=== PATIENT | male | born 1965 | race Caucasian/White ===

== ENCOUNTER 2022-12-30 10:12 | Outpatient (REF) | payer OTHER, SELFPAY ==
[2022-12-30 13:37] LABS: MANUAL DIFF FLAG NO
[2022-12-30 14:22] LABS: Basophils Percent Auto 0.5 % (0-2); Eosinophils Absolute Auto 0.2 X10*3/uL (0.0-0.4); Eosinophils Percent Auto 2.7 % (0-4); Hemoglobin 13.3 g/dl (14.0-18.0); Imm Gran Abs Auto 0.01 X10*3/uL (0.00-0.03); Imm Gran Pct Auto 0.2 % (0.0-0.4); Lymphocytes Absolute Auto 2.6 X10*3/uL (1.2-4.9); Lymphocytes Percent Auto 43.6 % (20-40); Mean Corpuscular HGB Conc 33.3 g/dl (31.0-36.0); Mean Corpuscular Hemoglobin 29.3 pg (27.0-33.0); Mean Corpuscular Volume 88.1 fL (80.0-98.0); Mean Platelet Volume 10.6 fL (9.4-12.4); Monocytes Absolute Auto 0.7 X10*3/uL (0.1-1.2); Monocytes Percent Auto 11.2 % (2-11); Neutrophils Absolute Auto 2.5 x10*3/uL (2.0-8.3); Neutrophils Percent Auto 41.8 % (45-73); Platelet Count 310 X10*3/uL (160-400); Red Blood Count 4.54 X10*6/uL (4.60-5.80); Red Cell Distribution Width 13.2 % (11.0-16.0)
[2022-12-30 14:40] LABS: Alanine Aminotransferase 23 U/L (0-40); Albumin Level 4.3 g/dL (3.5-5.0); Alkaline Phosphatase 78 U/L (39-117); Anion Gap 11 (12-20); Aspartate Amino Transferase 22 U/L (5-37); Bilirubin Total 0.5 mg/dL (0.0-1.0); Blood Urea Nitrogen 22 mg/dL (9-16); Calcium 9.2 mg/dL (8.4-10.2); Carbon Dioxide 28 mmol/L (22-29); Chloride 107 mmol/L (96-108); Cholesterol 262 mg/dL; Estimated Glomerular Filt Rate > 60; Glucose Fasting 96 mg/dL (60-99); HDL Cholesterol 43 mg/dL; LDL Cholesterol Calculated 171 mg/dl; Potassium 4.4 mmol/L (3.3-5.1); Sodium 142 mmol/L (135-145); Total Protein 7.5 g/dL (6.5-8.0); Triglycerides 241 mg/dL
[2022-12-30 14:56] LABS: Prostate Specific Antigen Scr 0.61 ng/mL (<0.05-4.0)
== END 2022-12-30 10:13 | disposition home or self-care (01) ==
LOC: HO.10HDL 10:12
PROVIDERS: Visit Provider Internal Medicine
DX: Z00.00 Encounter for general adult medical examination without abnormal findings (principal); Z12.5 Encounter for screening for malignant neoplasm of prostate; E78.2 Mixed hyperlipidemia; K12.0 Recurrent oral aphthae; K14.0 Glossitis; Z85.71 Personal history of Hodgkin lymphoma
CPT/HCPCS: 36415; 80053; 80061; 84153; 84443; 85025

== ENCOUNTER 2024-01-12 13:11 | Emergency (ER) | payer MEDICAID, SELFPAY ==
--- NOTE | ~2024-01-12 | XR_ITS ---
EXAMINATION: XR CHEST CLINICAL INFORMATION: Cough. Fever. COMPARISON: 09/06/2013. TECHNIQUE: 2 views of the chest were obtained. FINDINGS: No significant abnormality is noted involving the heart, lungs, mediastinum, bony thorax or soft tissues. XR/XR chest 2V IMPRESSION: Unremarkable examination.
[2024-01-12 13:41] VITALS: BP 141/85; PULSE 105; RESP 20; TEMP 39.4; O2SAT 94; BMI 28.0
--- NOTE | 2024-01-12 13:41 | ED.GENADULT ---
HPI - General Adult General Chief complaint: Upper Respiratory Symptoms Stated complaint: headache, body aches, coughing, sore throat Time Seen by Provider: 01/12/24 15:55 Source: patient Mode of arrival: ambulatory Limitations: no limitations History of Present Illness HPI narrative: Patient is a 58 year old assigned male at with a history of lymphoma presenting to the emergency department today with a fever, sore throat, and cough. Patient states that over the last few days he has had a fever, sore throat, and a cough. Patient denies any dizziness, lightheadedness, abdominal pain, nausea, vomiting, chills, blurry vision, double vision, loss of vision, chest pain, difficulty breathing, shortness of breath, back pain, night sweats, pain with urination, increased urinary frequency, increased urinary urgency, blood in his urine or stool, syncope or a near syncopal episode, recent trauma or falls, bowel incontinence, bladder incontinence, bowel retention, bladder retention, or any other complaints at this time. Onset (ago): day(s) Severity: mild Severity scale (1-10): 2 Relieving factors: none Exacerbating factors: none Associated symptoms: cough and fever/chills Treatments prior to arrival: none Related Data Home Medications Medication Instructions Recorded Confirmed loratadine-pseudoephedrine ER 10 500 tab PO USEASDIRECTD 03/10/23 03/10/23 mg-240 mg tablet,extended [id number] (Claritin-D 24 Hour) Previous Rx's Medication Instructions Recorded oseltamivir 75 mg capsule (Tamiflu) 75 mg PO DAILY 5 days #5 caps 01/12/24 Allergies Allergy/AdvReac Type Severity Reaction Status Date / Time No Known Allergies Allergy Verified 01/12/24 13:44 Review of Systems Constitutional: Constitutional: Reports no additional constitutional complaints, Denies chills, Reports fever(s) and Denies night sweats Eyes: Eyes: Reports no additional eye complaints, Denies blurry vision, Denies change in vision, Denies diplopia, Denies eye discharge, Denies loss of vision and Denies eye pain ENT: Denies dizziness and Reports sore throat Cardiovascular: Cardiovascular: Reports no additional cardiovascular complaints, Denies chest pain, Denies lightheadedness, Denies Loss of Consciousness and Denies dyspnea Respiratory: Respiratory: Reports no additional respiratory complaints, Reports cough and Denies dyspnea Gastrointestinal: Gastrointestinal: Reports no additional gastrointestinal complaints, Denies abdominal pain, Denies melena, Denies hematochezia, Denies change in bowel habits and Denies change in stool character Genitourinary: Genitourinary: Reports no additional male genitourinary complaints, Denies hematuria, Denies oliguria, Denies difficulty urinating, Denies dysuria, Denies urinary frequency, Denies urinary hesitancy, Denies urinary incontinence and Denies urinary urgency Musculoskeletal: Musculoskeletal: Reports no additional musculoskeletal complaints, Denies numbness and Denies tingling Neurologic: Denies dizziness, Denies loss of vision, Denies numbness and Denies tingling Psychiatric: Psychiatric: Reports no additional psychiatric complaints Endocrine: Endocrine: Reports no additional endocrine complaints Hematologic/Lymphatic: Hematologic/Lymphatic: Reports no additional hematologic/lymphatic complaints Allergic/Immunologic: Allergic/Immunologic: Reports no additional allergic/immunologic complaints PMFSH Past Medical History Attestation statement: The following information was validated with the patient. Source: old records reviewed and nursing notes reviewed Medical History Hodgkins lymphoma H/O scabies (~2013) Carpal tunnel syndrome, bilateral High cholesterol Dyslipidemia Surgical History History of liver biopsy History of laparotomy History of vasectomy S/P splenectomy S/P radiation therapy Family History Family History Father Hypertension Mother Hypertension Heart attack Social History Social History Patient Tobacco Use Status: Never used Tobacco e-Cigarette/Vaping Use: Never Used Advance Directives: No service: No Current occupational status: employed Physical Exam ED Vital Signs: Vital Signs - 24 hr 01/12/24 13:41 01/12/24 15:58 Temperature 103 F H 99.9 F Pulse Rate 105 H Respiratory Rate 20 Blood Pressure 141/85 H Pulse Oximetry 94 Oxygen Delivery Method Room Air BMI result Body Mass Index 28.0 Const General: cooperative, no acute distress, alert and awake Nutritional Appearance: well nourished Orientation/consciousness: patient oriented x3 Limitations: no limitations HENMT Head: Yes normal to inspection and Yes atraumatic Ears: hearing grossly normal bilaterally and external ears normal General nose exam: Normal external nose present, no nasal discharge noted and no epistaxis Face and sinus: Yes normal facial exam, No abrasion and No laceration Mouth: Normal oral and palatal mucosa present, no drooling and no muffled voice Eyes General: appearance normal, both eyes and all related structures Periorbital: periorbital findings normal Eyelids: Yes eyelids normal Conjunctivae: conjunctivae normal Pupils: Equal, round and reactive pupils present EOM: EOMs intact bilaterally Neck Neck: Yes normal visual inspection, Yes full ROM and Yes no lymphadenopathy Chest Chest palpation & inspection: normal inspection of the chest Resp Effort & Inspection: normal respiratory effort and able to speak in complete sentences Auscultation: clear to auscultation bilaterally GI Inspection: Yes normal to inspection Neuro General: patient oriented x3 and moves all extremities Cranial nerves: Yes Equal, round and reactive pupils present Cognition (Neuro): normal cognition Motor exam (neuro): 5/5 motor strength present throughout Sensory Exam: Normal double simultaneous stimulation for sensation Coordination: [id number] test normal Extrem General: Yes normal to inspection, Yes full ROM and Yes capillary refill normal Psych Appearance: grossly normal Mental Status: mental status grossly normal Affect: normal affect Attitude: cooperative Thought process: Normal thought process present Thought content: Normal thought content present Insight: Good insight present (Psych) Course Course Course Narrative: RME performed by Shi Sharp PA-C. Patient is a 58 year old assigned male at presenting to the emergency department with a cough, headache, and congestion. 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 Labs and swabs ordered. Patient placed back in the waiting room pending room availability and results. Medications Administered Discontinued Medications Generic Name Dose Route Start Last Admin Trade Name Freq PRN Reason Stop Dose Admin Acetaminophen 975 mg 01/12/24 13:42 01/12/24 13:47 Acetaminophen 325 Mg Tablet PO 01/12/24 13:43 975 mg ONCE ONE Administration Medical Decision Making Medical Decision Making MDM Narrative: Patient is a 58 year old assigned male at with a history of hodgkins lymphoma presenting to the emergency department today with a fever, cough, and sore throat. Patient's physical exam was unremarkable. Patient's blood work was unremarkable. Patient's EKG was unremarkable. Patient's chest x-ray showed no acute process. Patient's COVID-19 test was negative. Patient's influenza test was positive. Patient's strep test was negative. I explained my physical exam findings as well as all test results to the patient. I answered all questions asked by the patient. I stressed the importance of the patient taking his medication as prescribed. I stressed the importance of the patient following up with his primary care provider. I stressed the importance of the patient returning to the emergency department immediately if his symptoms were to worsen or if he were to develop any dizziness, shortness of breath, difficulty breathing, chest pain, blurry vision, loss of vision, nausea, vomiting, abdominal pain, fever, chills, back pain, or any other complaints. Patient verbalized agreement and understanding with this treatment plan and discharge. Differential Diagnosis Differential Diagnoses: The differential diagnosis associated with the presentation includes Influenza COVID-19 Strep pharyngitis Admission/Observation Consideration of admission/observation: Escalation of care including admission/observation considered Patient would have been admitted to the hospital had his work up had any findings where hospital admission was appropriate and his clinical presentation warranted hospital admission. Lab Data [facility] Lab Attestation statement: I reviewed the patient's lab results. My interpretation of these results are in the [facility] Rationale portion of this note. 01/12/24 13:53 01/12/24 13:53 Labs: Lab Results 01/12/24 Range/Units 13:53 WBC 5.4 (4.8-10.8) X10*3/uL RBC 4.58 L (4.60-5.80) X10*6/uL Hgb 13.2 L (14.0-18.0) g/dl Hct 39.5 L (42.0-52.0) % MCV 86.2 (80.0-98.0) fL MCH 28.8 (27.0-33.0) pg MCHC 33.4 (31.0-36.0) g/dl RDW 12.8 (11.0-16.0) % Plt Count 320 (160-400) X10*3/uL MPV 9.6 (9.4-12.4) fL Immature Gran % (Auto) 0.2 (0.0-0.4) % Neut % (Auto) 55.1 (45-73) % Lymph % (Auto) 25.2 (20-40) % [place] % (Auto) 16.6 H (2-11) % Eos % (Auto) 2.2 (0-4) % Baso % (Auto) 0.7 (0-2) % Lymph # (Auto) 1.4 (1.2-4.9) X10*3/uL [place] # (Auto) 0.9 (0.1-1.2) X10*3/uL Eos # (Auto) 0.1 (0.0-0.4) X10*3/uL Baso # (Auto) 0.0 (0.0-0.2) X10*3/uL Abs Immat Gran (auto) 0.01 (0.00-0.03) X10*3/uL Absolute Neuts (auto) 2.9 (2.0-8.3) x10*3/uL Absolute Nucleated RBC 0.000 (0.0-0.012) X10*3/uL Nucleated RBC % (auto) 0.0 (0.0-0.2) /100WBC Sodium 137 (135-145) mmol/L Potassium 3.3 (3.3-5.1) mmol/L Chloride 105 (96-108) mmol/L Carbon Dioxide 24 (22-29) mmol/L Anion Gap 11 L (12-20) BUN 15 (9-16) mg/dL Creatinine 1.16 (0.5-1.4) mg/dL Estim Creat Clear Calc 71.6 Estimated GFR > 60 Random Glucose 137 H (60-115) mg/dL Calcium 9.3 (8.4-10.2) mg/dL Magnesium 2.2 (1.6-2.6) mg/dL Total Bilirubin 0.3 (0.0-1.0) mg/dL AST 32 (5-37) U/L ALT 25 (0-40) U/L Alkaline Phosphatase 92 (39-117) U/L Troponin I High Sens < 2.7 (<3.5-35.0) ng/L Total Protein 8.1 H (6.5-8.0) g/dL Albumin 4.3 (3.5-5.0) g/dL COVID-19 (TANO) Negative (Negative) COVID-19 Clin Com See Note Influenza Type A (COLLIN) Positive A (Negative) Influenza Type B (COLLIN) Negative (Negative) Influenza A & B Note See Note Independent Interpretation I performed an independent interpretation of an: EKG and Plain X-Ray Interpretation: My interpretation is in agreement with the radiologist's impression of this imaging study. EXAMINATION: XR CHEST CLINICAL INFORMATION: Cough. Fever. COMPARISON: 09/06/2013. TECHNIQUE: 2 views of the chest were obtained. FINDINGS: No significant abnormality is noted involving the heart, lungs, mediastinum, bony thorax or soft tissues. XR/XR chest 2V IMPRESSION: Unremarkable examination. Dictated By: Rashard Rodriguez Signed By: Electronically signed by Rashard Rodriguez 01/12/24 1502 Vent. Rate: 098 BPM Atrial Rate: 098 BPM P-R Int: 154 ms QRS Dur: 088 ms QT Int: 320 ms P-R-T Axes: 053 064 007 degrees QTc Int: 408 ms Normal sinus rhythm Normal ECG When compared with ECG of 06-SEP-2013 21:16, No significant change was found DD/ 1348 Radiology Impression Discussion of test interpretation with radiology: I have reviewed the radiologist's reading. Prescription Management I considered prescription management with: Antiviral (patient prescribed tamiflu) Discharge Plan Discharge Clinical Impression: Influenza Patient Disposition: Home, Self-Care Instructions: Influenza (DC) Additional Instructions: Follow up with your primary care provider. Return to the emergency department immediately if your symptoms worsen or if you develop any dizziness, shortness of breath, difficulty breathing, chest pain, blurry vision, loss of vision, nausea, vomiting, abdominal pain, fever, chills, back pain, or any other complaints. Prescriptions: New oseltamivir [Tamiflu] 75 mg capsule 75 mg PO DAILY 5 Days Qty: 5 0RF No Action Claritin-D 24 Hour 10-240 mg Tablet Extended Release 24 Hr 500 tab PO USEASDIRECTD Referrals: Genesis Gray MD [Primary Care Provider] - Interventions: ED Discharge Assessment Last Done: 01/12/24 16:29 Discharge Date/Time: 01/12/24 16:29 Print Language: Slovenian
--- NOTE | 2024-01-12 13:45 | ECG_ITS ---
Test Reason : CHEST PAIN Blood Pressure : / mmHG Vent. Rate : 098 BPM Atrial Rate : 098 BPM P-R Int : 154 ms QRS Dur : 088 ms QT Int : 320 ms P-R-T Axes : 053 064 007 degrees QTc Int : 408 ms Normal sinus rhythm Normal ECG When compared with ECG of 06-SEP-2013 21:16, No significant change was found Referred By: Shi Sharp Electronically Signed By:Rodrigo Dennis
[2024-01-12] MEDS: Acetaminophen 325 MG TABLET 975 MG PO (13:47)
[2024-01-12 14:06] LABS: MANUAL DIFF FLAG NO
[2024-01-12 14:09] LABS: Basophils Percent Auto 0.7 % (0-2); Eosinophils Absolute Auto 0.1 X10*3/uL (0.0-0.4); Eosinophils Percent Auto 2.2 % (0-4); Hematocrit 39.5 % (42.0-52.0); Hemoglobin 13.2 g/dl (14.0-18.0); Imm Gran Abs Auto 0.01 X10*3/uL (0.00-0.03); Imm Gran Pct Auto 0.2 % (0.0-0.4); Lymphocytes Absolute Auto 1.4 X10*3/uL (1.2-4.9); Lymphocytes Percent Auto 25.2 % (20-40); Mean Corpuscular HGB Conc 33.4 g/dl (31.0-36.0); Mean Corpuscular Hemoglobin 28.8 pg (27.0-33.0); Mean Corpuscular Volume 86.2 fL (80.0-98.0); Mean Platelet Volume 9.6 fL (9.4-12.4); Monocytes Absolute Auto 0.9 X10*3/uL (0.1-1.2); Monocytes Percent Auto 16.6 % (2-11); Neutrophils Absolute Auto 2.9 x10*3/uL (2.0-8.3); Neutrophils Percent Auto 55.1 % (45-73); Platelet Count 320 X10*3/uL (160-400); Red Blood Count 4.58 X10*6/uL (4.60-5.80); Red Cell Distribution Width 12.8 % (11.0-16.0); White Blood Count 5.4 X10*3/uL (4.8-10.8)
[2024-01-12 14:27] LABS: COVID-19 Test Negative (Negative); IDNOW Serial# 08D9AD1C
[2024-01-12 14:28] LABS: IDNOW Serial# 152EDE1D; Influenza A Positive (Negative); Influenza B2 Negative (Negative)
[2024-01-12 15:58] VITALS: TEMP 37.7
[2024-01-12 16:48] LABS: Alanine Aminotransferase 25 U/L (0-40); Albumin Level 4.3 g/dL (3.5-5.0); Alkaline Phosphatase 92 U/L (39-117); Anion Gap 11 (12-20); Aspartate Amino Transferase 32 U/L (5-37); Bilirubin Total 0.3 mg/dL (0.0-1.0); Blood Urea Nitrogen 15 mg/dL (9-16); Calcium 9.3 mg/dL (8.4-10.2); Carbon Dioxide 24 mmol/L (22-29); Chloride 105 mmol/L (96-108); Creatinine Clr Calc Pharmacy 71.6; Estimated Glomerular Filt Rate > 60; Glucose Random 137 mg/dL (60-115); Magnesium 2.2 mg/dL (1.6-2.6); Potassium 3.3 mmol/L (3.3-5.1); Sodium 137 mmol/L (135-145); Total Protein 8.1 g/dL (6.5-8.0)
[2024-01-12 17:04] LABS: Troponin-I High Sensitivity < 2.7 ng/L (<3.5-35.0)
== END 2024-01-12 16:29 | disposition home or self-care (01) ==
PROVIDERS: Physician Assistant Medical; Emergency Provider Emergency Medicine Emergency Medical Services; PCP Internal Medicine
DX: J10.1 Influenza due to other identified influenza virus with other respiratory manifestations (principal); R51.9 Headache, unspecified; M79.10 Myalgia, unspecified site; R05.9 Cough, unspecified; R50.9 Fever, unspecified; Z11.52 Encounter for screening for COVID-19; Z79.899 Other long term (current) drug therapy
CPT/HCPCS: 36415; 71046; 80053; 83735; 84484; 85025; 87502; 87635; 93005; 99283

== ENCOUNTER → 2024-01-12 13:45 | Outpatient (BNV) | payer MEDICAID, SELFPAY | PROVIDERS: Emergency Provider Emergency Medicine Emergency Medical Services; PCP Internal Medicine; Visit Provider Internal Medicine Cardiovascular Disease | DX: R07.9 Chest pain, unspecified (principal) | CPT/HCPCS: 93010 ==

== ENCOUNTER 2024-02-18 10:20 | Outpatient (AMB) | payer MEDICAID, SELFPAY ==
--- NOTE | 2024-02-18 10:26 | MHC.OFFVIS ---
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 He is a 58-year-old male with prior history of hyperlipidemia only recently started being treated for the same, family history of premature coronary artery disease in his grandfather, personal history of mantle radiation for Hodgkin's lymphoma in 1990. He has had remission with lymphoma since then. Said about 3 years ago after he got COVID annual was playing softball and running he got episode chest tightness associated with shortness of breath. He then stopped and rested and the symptoms subsided. He then after subsequent episodes of COVID he has had worsening symptoms of exertional chest pain with lesser intensity. Now said when he goes out and does some walking he gets chest tightness was with shortness of breath. Was given sublingual nitroglycerin but he said this has not helped but his daughters inhalers helps him slightly. He said he continues to walk sometimes and he continues to have the chest pressure and then when he rests the symptoms then subside within 5-10 minutes. He has not had any other prolonged symptoms at rest. Symptoms have always been exertional in nature. He denies any heart failure symptoms. Denies any lightheadedness, syncope. [facility] Medical History Hodgkins lymphoma H/O scabies (~2013) Carpal tunnel syndrome, bilateral High cholesterol Dyslipidemia Surgical History History of liver biopsy History of laparotomy History of vasectomy S/P splenectomy S/P radiation therapy Family History Father Hypertension Mother Hypertension Heart attack Social History Patient Tobacco Use Status: Never used Tobacco e-Cigarette/Vaping Use: Never Used service: No Current occupational status: employed Review of Systems Const Denies chills, Denies daytime sleepiness, Denies fatigue, Denies fever(s), Denies frequent falls, Denies poor appetite, Denies snoring, Denies stops breathing during sleep, Denies weakness, Denies weight gain and Denies weight loss Eyes Denies loss of vision ENT Denies dizziness and Denies hearing loss Card Denies chest pain, Denies claudication, Denies leg edema, Denies lightheadedness, Denies palpitations, Denies dyspnea, Denies dyspnea on exertion and Denies orthopnea Resp Denies cough, Denies excessive phlegm production, Denies dyspnea, Denies dyspnea on exertion, Denies snoring and Denies wheezing GI Denies abdominal pain, Denies hematochezia, Denies change in bowel habits, Denies nausea and Denies vomiting Denies dysuria and Denies urinary frequency Musc Denies arthralgias, Denies muscle weakness, Denies numbness and Denies other (frequent falls) Skin/Breast Denies nail changes and Denies rash Neuro Denies Abnormal speech present, Denies dizziness, Denies frequent falls, Denies loss of vision, Denies memory loss, Denies numbness and Denies weakness Psych Denies depression and Denies memory loss Endo Denies fatigue and Denies palpitations Arnie/Lymph Reports easy bruising and Reports other (anemia) Aller/Immun Denies wheezing Physical Exam Vital Signs: Last Vital Signs Pulse 70 02/18/24 10:27 BP 110/70 02/18/24 10:27 BMI result Body Mass Index 27.6 Const General: cooperative, comfortable, no acute distress, well developed, alert, awake and Physically active Nutritional Appearance: average body habitus and well nourished Orientation/consciousness: patient oriented x3 Limitations: no limitations HEENT Head: Yes normocephalic and Yes atraumatic Neck Neck: Yes trachea midline, Yes supple and Yes no JVD Resp Effort & Inspection: normal respiratory effort Auscultation: clear to auscultation bilaterally Cardio Jugular venous distension: no JVD Palpation: normal PMI Rate: regular rate Rhythm: regular rhythm Heart sounds: S1 normal heart sound present, S2 normal heart sound present, no click, no gallops and no murmurs GI Auscultation: normal bowel sounds Skin General skin exam: no rashes or lesions noted Neuro General: patient oriented x3 and no focal motor deficits Speech: No Abnormal speech present Extrem General: Yes no clubbing, cyanosis or edema Psych Appearance: grossly normal Office Procedures EKG Details: EKG shows normal sinus rhythm normal EKG at 70 beats per minute [id number], Complete Assessment & Plan Assessment & Plan (1) Exertional chest pain: Code(s): R07.9 - Chest pain, unspecified Plan: Exertional chest pain in this middle-aged man with risk factors of family history as well as hyperlipidemia as well as history of mantle radiation which is risk factor for development of progressive atherosclerotic disease. We discussed management. Given his baseline EKG being normal I would like to do a treadmill stress test to evaluate for myocardial ischemia. If his high risk treadmill stress test, would require invasive cardiac catheterization. This was discussed with him. I have meanwhile advised him to avoid strenuous exertion. Will start him on low-dose aspirin as well as Toprol-XL 50 mg daily. Continue high-intensity statin therapy. If he gets any symptoms at rest he is advised to seek emergency care right away. Also advised him to have an echocardiogram as radiation involving the heart can cause radiation induced heart disease and will evaluate for the same. Possibility of bronchospastic airway disease related to either radiation and/or COVID could be possibility. However if his cardiac workup is negative can pursue pulmonary workup at that point in time. (2) Dyslipidemia: Code(s): E78.5 - Hyperlipidemia, unspecified Plan: Significant hyperlipidemia with family history as well as mantle radiation. Strongly suggest him to continue high-intensity statin therapy. Target goal LDL less than 70 mg/dL. Continue participate in heart healthy lifestyle. Avoid strenuous exertion at this point time till the workup is completed. Will follow up in the clinic in 4 weeks time, sooner p.r.n.. Thank you for allowing me to partake in his care Orders: Orders CA stress test Today R07.9 - Chest pain, unspecified CA echo transthoracic complete Today R07.9 - Chest pain, unspecified Medications: New aspirin (Ecotrin Low Strength) 81 mg PO DAILY 30 tabs 5RF R07.9 - Chest pain, unspecified metoprolol succinate ER (Toprol XL) 50 mg PO DAILY 30 tabs 3RF R07.9 - Chest pain, unspecified Coding Level of Care Code New Pt Level 4 (15199) Diagnoses Exertional chest pain R07.9 Dyslipidemia E78.5 CPT Codes EKG - CPT: 57902-[id number], Complete ([id number])
[2024-02-18 10:27] VITALS: BP 110/70; PULSE 70; BMI 27.6
== END 2024-02-18 11:00 | disposition home or self-care (01) ==
PROVIDERS: PCP Internal Medicine; Visit Provider Internal Medicine Cardiovascular Disease
DX: R07.9 Chest pain, unspecified (principal); E78.5 Hyperlipidemia, unspecified
CPT/HCPCS: 93010; 99204

== ENCOUNTER → 2024-02-18 10:20 | Outpatient (BNVA) | payer MEDICAID, SELFPAY | PROVIDERS: PCP Internal Medicine; Visit Provider Internal Medicine Cardiovascular Disease | DX: R07.9 Chest pain, unspecified (principal); E78.5 Hyperlipidemia, unspecified | CPT/HCPCS: 93005; 99202 ==

== ENCOUNTER → 2024-02-19 08:41 | Outpatient (REF) | payer MEDICAID, SELFPAY ==
--- NOTE | 2024-02-19 08:45 | CA_ITS ---
Acquisition Time: 2024-02-19 08:59:40 Total Exercise Time: 00:04:06 Test Indications: CP, SOB Medications: SEE H Protocol: JERALD Max HR: 120 BPM 73% of Pred: 163 BPM Max BP: 158/072 mmHG Max Work Load: 5.9 METS Exercise stress test exercise 4 min 6 sec of jerald protocol achieving 73% MPHR, with 7/10 chest tightness at peak (2/10 in strage 1), with mild SOB. with a drop in blood pressure, with EKG changes in leads 2,3, aVF greater than 1mm. CHets pain reslolved with rest. Robb treadmill score -14. Test reviewedf with Dr. Campbell. Referred By: Vladimir Gordon Overread By: Keiry Weaver
[2024-02-19 09:59] LABS: MANUAL DIFF FLAG NO
[2024-02-19 10:48] LABS: Basophils Percent Auto 0.6 % (0-2); Eosinophils Absolute Auto 0.2 X10*3/uL (0.0-0.4); Hematocrit 40.9 % (42.0-52.0); Hemoglobin 13.8 g/dl (14.0-18.0); Imm Gran Abs Auto 0.01 X10*3/uL (0.00-0.03); Imm Gran Pct Auto 0.2 % (0.0-0.4); Lymphocytes Absolute Auto 2.7 X10*3/uL (1.2-4.9); Lymphocytes Percent Auto 40.8 % (20-40); Mean Corpuscular HGB Conc 33.7 g/dl (31.0-36.0); Mean Corpuscular Hemoglobin 29.4 pg (27.0-33.0); Mean Platelet Volume 10.4 fL (9.4-12.4); Monocytes Absolute Auto 0.7 X10*3/uL (0.1-1.2); Monocytes Percent Auto 10.1 % (2-11); Neutrophils Percent Auto 45.3 % (45-73); Platelet Count 314 X10*3/uL (160-400); Red Cell Distribution Width 13.5 % (11.0-16.0); White Blood Count 6.6 X10*3/uL (4.8-10.8)
[2024-02-19 10:58] LABS: INTERNATIONAL NORM RATIO 0.9 (0.9-1.1); Prothrombin Time 10.8 SEC (11.1-13.3)
[2024-02-19 11:10] LABS: Anion Gap 13 (12-20); Blood Urea Nitrogen 18 mg/dL (9-16); Calcium 9.4 mg/dL (8.4-10.2); Carbon Dioxide 26 mmol/L (22-29); Chloride 104 mmol/L (96-108); Estimated Glomerular Filt Rate > 60; Glucose Random 100 mg/dL (60-115); Potassium 4.5 mmol/L (3.3-5.1); Sodium 138 mmol/L (135-145)
== END ==
LOC: HO.CARD 08:41
PROVIDERS: Nurse Practitioner; PCP Internal Medicine; Visit Provider Internal Medicine Cardiovascular Disease
DX: Z01.812 Encounter for preprocedural laboratory examination (principal); R07.9 Chest pain, unspecified; E78.5 Hyperlipidemia, unspecified
CPT/HCPCS: 36415; 80048; 85025; 85610; 93017

== ENCOUNTER → 2024-02-23 09:33 | Outpatient (REF) | payer MEDICAID, SELFPAY ==
--- NOTE | 2024-02-23 09:41 | CA_ITS ---
Transthoracic Echocardiogram Patient (Last, First, Middle): Callum Henriquez, Gender: Male Date of : 1965 Age: 58 Procedure Date: 02/23/2024 Procedure Type: Transthoracic Echocardiogram Location: OP Height: 170.18 cm Weight: 79.38 kg BSA: 1.91 m2 Heart Rate: 67 bpm BP: 140 / 75 mmHg Banking Assistant: REESE Referring MD: Vladimir Gordon MD Symptoms: R07.9 - Chest pain, unspecified Study Quality: Adequate ECG Rhythm: Sinus Conclusions: - The left ventricular systolic function is normal. The calculated ejection fraction is 62% by biplane method. - The basal inferior and basal inferolateral segments are hypokinetic. - No obvious valvular pathology seen on this study. Findings Left Ventricle Normal left ventricular cavity size. There is normal left ventricular wall thickness. The left ventricular systolic function is normal. The calculated ejection fraction is 62% by biplane method. There is no evidence of regional wall motion abnormalities. Diastolic function is normal for age. LV peak GLS -22.5%. Wall Motion Rest Echo Findings The basal inferior and basal inferolateral segments are hypokinetic. Right Ventricle Mildly increased right ventricular cavity size. There is normal right ventricular systolic function. Atria Both atria are normal in size. Aortic Valve There is a normal trileaflet aortic valve. There is no aortic valve stenosis. There is no aortic valve regurgitation. Mitral Valve The mitral valve appears normal. There is trace mitral valve regurgitation. There is no mitral valve stenosis. Pulmonic Valve The pulmonic valve is likely normal. Tricuspid Valve There is trace tricuspid valve regurgitation. There is no evidence of pulmonary hypertension. Great Vessels The asc aorta is normal in size. Venous The inferior vena cava is normal in size and collapses greater than 50% with inspiration. Pericardium/Pleural There is no evidence of pericardial effusion. Prior Study Comparison No prior study available for comparison. Recommendations, Care & Conclusions No obvious valvular pathology seen on this study. Measurements 2D Linear Measurements IVSd: 0.76 0.6-0.9/0.6-1.0 cm LVIDd: 4.70 3.9-5.3/4.2-5.9 cm LVIDd Index: 2.46 2.4-3.2/2.2-3.1 cm/m2 LVIDs: 2.53 2.0-3.6 cm LVPWd: 0.85 0.7-1.1 cm LA Diam: 3.40 2.7-3.8/3.0-4.0 cm LAIDs Index: 1.78 1.5-2.3 cm/m2 LV Mass: 154.31 67-162/88-224 g LV Mass Index: 80.79 43-95/49-115 g/m2 LVOT Diam: 2.20 3.0+(-)1.3 cm 2D Systolic Function EF 4C: 58.80 >55% EF 2C: 62.30 >55% EF BiP: 62.30 >55% Mitral Valve MV Pk E: 0.91 MV PK A: 0.97 MV Decel Time: 203.00 E/A: 0.90 E'Lateral: 8.59 E'Medial: 7.83 E/E' Med: 11.60 E/E' Lat: 10.60 PHT: 60.00 MVA PHT: 3.67 [place]: 4.48 Aortic Valve AoV Pk Raciel: 1.50 AoV Mn Raciel: 1.01 AoV VTI: 0.32 AoV Pk Grad: 9.00 Aov Mn Grad: 5.00 XUAN Cont.VTI: 2.72 LVOT LVOT Pk Raciel: 1.07 LVOT Mn Raciel: 0.72 LVOT VTI: 0.23 LVOT Pk Grad: 5.00 LVOT Mn Grad: 2.00 LVOT Diam: 2.20 LVOT Area: 3.80 Diastolic Function MV Pk E: 0.91 MV Pk A: 0.97 E/A: 0.90 E'Medial: 7.83 E/E' Med: 11.60 E' Laterial: 8.59 E/E' Lat: 10.60 Right Ventricle TAPSE (mm): 27.40 TVS' Raciel: 16.30 Tricuspid Valve TR Pk Raciel: 1.99 TR Pk Grad: 16.00 RA Press: 3.00 RVSP: 19.00 Great Vessels Aorta Sinus of Valsalva: 3.70 2.0-3.5 cm Ao Asc: 3.20 2.1-3.4 cm Pulmonary Valve PV Pk Raciel: 1.27 Peak PV Grad: 6.00 Updated in Other Vendor System with Status of Final Tim Campbell MD electronically signed on 02/23/2024 4:59:51 PM with status of Final
[2024-02-23 09:56] LABS: MANUAL DIFF FLAG NO
[2024-02-23 10:14] LABS: Basophils Percent Auto 0.6 % (0-2); Eosinophils Absolute Auto 0.2 X10*3/uL (0.0-0.4); Eosinophils Percent Auto 2.9 % (0-4); Hematocrit 40.1 % (42.0-52.0); Hemoglobin 13.2 g/dl (14.0-18.0); Imm Gran Abs Auto 0.01 X10*3/uL (0.00-0.03); Imm Gran Pct Auto 0.1 % (0.0-0.4); Lymphocytes Percent Auto 41.9 % (20-40); Mean Corpuscular HGB Conc 32.9 g/dl (31.0-36.0); Mean Corpuscular Hemoglobin 28.9 pg (27.0-33.0); Mean Corpuscular Volume 87.7 fL (80.0-98.0); Mean Platelet Volume 10.1 fL (9.4-12.4); Monocytes Absolute Auto 0.8 X10*3/uL (0.1-1.2); Monocytes Percent Auto 11.4 % (2-11); Neutrophils Absolute Auto 3.1 x10*3/uL (2.0-8.3); Neutrophils Percent Auto 43.1 % (45-73); Platelet Count 300 X10*3/uL (160-400); Red Blood Count 4.57 X10*6/uL (4.60-5.80); Red Cell Distribution Width 13.8 % (11.0-16.0); White Blood Count 7.3 X10*3/uL (4.8-10.8)
[2024-02-23 11:13] LABS: Prostate Specific Antigen Scr 0.41 ng/mL (<0.05-4.0)
[2024-02-23 11:14] LABS: Alanine Aminotransferase 33 U/L (0-40); Albumin Level 4.3 g/dL (3.5-5.0); Alkaline Phosphatase 93 U/L (39-117); Anion Gap 9 (12-20); Aspartate Amino Transferase 30 U/L (5-37); Blood Urea Nitrogen 15 mg/dL (9-16); Calcium 9.9 mg/dL (8.4-10.2); Carbon Dioxide 28 mmol/L (22-29); Chloride 106 mmol/L (96-108); Cholesterol 161 mg/dL (<200); Estimated Glomerular Filt Rate > 60; Glucose Random 111 mg/dL (60-115); HDL Cholesterol 47 mg/dL (>40); LDL Cholesterol Calculated 47 mg/dL (<100); Potassium 4.7 mmol/L (3.3-5.1); Sodium 138 mmol/L (135-145); Total Protein 7.8 g/dL (6.5-8.0); Triglycerides 335 mg/dL (<150)
[2024-02-23 11:51] LABS: Bilirubin Total 0.5 mg/dL (0.0-1.0)
== END ==
LOC: HO.CARD 09:33
PROVIDERS: PCP Internal Medicine; Visit Provider Internal Medicine Cardiovascular Disease
DX: R07.9 Chest pain, unspecified (principal); E78.2 Mixed hyperlipidemia; I20.9 Angina pectoris, unspecified; M75.42 Impingement syndrome of left shoulder; N40.0 Benign prostatic hyperplasia without lower urinary tract symptoms; R73.01 Impaired fasting glucose; Z85.71 Personal history of Hodgkin lymphoma
CPT/HCPCS: 36415; 80053; 80061; 84153; 85025; 93306; 93356

== ENCOUNTER → 2024-02-23 09:41 | Outpatient (BNV) | payer MEDICAID, SELFPAY | PROVIDERS: PCP Internal Medicine; Visit Provider Internal Medicine | DX: R07.9 Chest pain, unspecified (principal) | CPT/HCPCS: 93306; 93356 ==

== ENCOUNTER → 2024-02-24 23:59 | Outpatient (BNV) | payer MEDICAID, SELFPAY | PROVIDERS: PCP Internal Medicine; Visit Provider Internal Medicine Cardiovascular Disease | DX: I20.89 Other forms of angina pectoris (principal) | CPT/HCPCS: 93458; 99152 ==

== ENCOUNTER 2024-03-08 09:36 | Outpatient (AMB) | payer MEDICAID, SELFPAY ==
[2024-03-08 09:54] VITALS: BP 130/62; PULSE 64; BMI 28.4
--- NOTE | 2024-03-08 09:54 | MHC.OFFVIS ---
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 He has been following with Dr Gordon and had stable angina and underwent exercise stress test which was significantly abnormal which led to cardiac catheterization. Cardiac catheterization has shown occluded mid RCA with [id number] collaterals. He also has distal left main 80% stenosis involving the bifurcation with ostial circumflex as well as LAD disease. He also has 70% proximal circumflex stenosis. There is moderate calcification present. He was referred for cardiac surgery for bypass but due to mental radiation it was felt that his surgical risk is significantly high and he has been referred back for PCI. He has been experiencing anginal symptoms with activity. He said he was raking leaves today and had chest discomfort which went away with rest. He has been experiencing mostly exertional symptoms and overall has stable angina. We discussed in detail about his coronary anatomy and I have shown him some pictures of his coronary arteries for him to understand what we are dealing with. I have also explained to him the rationale behind being not a good surgical candidate. He understands that. [facility] Medical History Hodgkins lymphoma H/O scabies (~2013) Carpal tunnel syndrome, bilateral High cholesterol Dyslipidemia Surgical History History of liver biopsy History of laparotomy History of vasectomy S/P splenectomy S/P radiation therapy Family History Father Hypertension Mother Hypertension Heart attack Social History Patient Tobacco Use Status: Never used Tobacco e-Cigarette/Vaping Use: Never Used service: No Current occupational status: employed Review of Systems Const Denies chills, Denies fatigue, Denies fever(s), Denies frequent falls, Denies weakness, Denies weight gain and Denies weight loss ENT Denies dizziness Card Denies chest pain, Denies leg edema, Denies lightheadedness, Denies palpitations, Denies dyspnea and Denies dyspnea on exertion Resp Denies cough, Denies dyspnea and Denies dyspnea on exertion GI Denies hematochezia Musc Denies abnormal gait, Denies muscle weakness, Denies numbness, Denies radiating pain into limb and Denies tingling Neuro Denies abnormal gait, Denies dizziness, Denies frequent falls, Denies numbness, Denies tingling and Denies weakness Endo Denies fatigue and Denies palpitations Physical Exam Vital Signs: Last Vital Signs Pulse 64 03/08/24 09:54 BP 130/62 03/08/24 09:54 BMI result Body Mass Index 28.4 GENERAL APPEARANCE: in no acute distress, pleasant. NECK: no carotid bruit, no jugular venous distention. SKIN: no suspicious lesions, warm and dry. HEART: no murmurs, regular rate and rhythm. LUNGS: clear to auscultation bilaterally. ABDOMEN: soft, nontender. EXTREMITIES: no edema. PERIPHERAL PULSES: equal. NEUROLOGIC: No gross deficits, AAO X 3 Assessment & Plan Assessment & Plan (1) Coronary artery disease: Code(s): I25.10 - Atherosclerotic heart disease of [place] coronary artery without angina pectoris (2) Stable angina: Code(s): I20.89 - Other forms of angina pectoris Plan 59-year-old gentleman who had Hodgkin's lymphoma and mantle radiation in 1991 who underwent cardiac catheterization for stable angina and abnormal stress test showing occluded right coronary artery and severe distal left main bifurcation stenosis. He was referred for surgery and has been deemed high risk for surgery due to mental radiation in the past. He is here for discussion about PCI as an option. We had a detailed discussion about procedure and the possibility of using support with Impella. I have explained to him that referral to a different surgical site for 2nd opinion is a possibility but our personal experience has been bad with mantle radiation with poor outcomes in patients after cardiac surgery. We will plan the procedure from femoral approach. Will decide about support after assessment of filling pressures during the procedure. I have calculated his PCI risk using the [employer] PCI risk tool and he has 0.1% risk of in-hospital mortality, in-hospital bleeding 1.5% and in-hospital femur complication 0.5%. I think surgery would have been a better option but given his radiation and surgical risk I think we will proceed with PCI. After detailed discussion the patient is agreeable. I am loading him with Plavix and he will take 75 mg Plavix daily. My plan was to give him amlodipine but his blood pressures have been lower before and I do not want him to get dizzy or lightheaded as it may lead to further anxiety and he seems quite anxious already. I have advised him not to do any strenuous activity till we do the procedure. We will arrange this in the coming 1-2 weeks. Thank you for allowing me to participate in the care of your patient. Please feel free to contact me if you have any questions. Medications: New clopidogrel 75 mg orally Take 4 tablets on day 1, then 1 tablet once a day.; 120 tabs 3RF Coding Level of Care Code New Pt Level 5 (94633) Diagnoses Coronary artery disease I25.10 Stable angina I20.89
== END 2024-03-08 10:36 | disposition home or self-care (01) ==
PROVIDERS: PCP Internal Medicine; Referring Provider Internal Medicine; Visit Provider Internal Medicine Cardiovascular Disease
DX: I25.118 Atherosclerotic heart disease of native coronary artery with other forms of angina pectoris (principal); I25.82 Chronic total occlusion of coronary artery
CPT/HCPCS: 99215

== ENCOUNTER → 2024-03-08 09:36 | Outpatient (BNVA) | payer MEDICAID, SELFPAY | PROVIDERS: PCP Internal Medicine; Visit Provider Internal Medicine Cardiovascular Disease | DX: I25.118 Atherosclerotic heart disease of native coronary artery with other forms of angina pectoris (principal); I10 Essential (primary) hypertension; Z98.890 Other specified postprocedural states; Z92.3 Personal history of irradiation | CPT/HCPCS: 99212 ==

== ENCOUNTER → 2024-03-25 23:59 | Outpatient (BNV) | payer MEDICAID, SELFPAY | PROVIDERS: PCP Internal Medicine; Visit Provider Internal Medicine Cardiovascular Disease | DX: I25.118 Atherosclerotic heart disease of native coronary artery with other forms of angina pectoris (principal) | CPT/HCPCS: 92920; 92928; 92973; 92978; 93458; 99152 ==

== ENCOUNTER 2024-04-29 08:03 | Outpatient (AMB) | payer MEDICAID, SELFPAY ==
[2024-04-29 08:06] VITALS: BP 120/62; PULSE 66; BMI 28.8
--- NOTE | 2024-04-29 08:06 | MHC.OFFVIS ---
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 Allergies No Known Allergies Allergy (Verified 04/29/24 08:08) Medication List - Last Reconciled 04/29/24 by Blanca Small NP-C aspirin (Ecotrin Low Strength) 81 mg PO DAILY atorvastatin 80 mg PO DAILY clopidogrel 75 mg orally Take 4 tablets on day 1, then 1 tablet once a day.; loratadine-pseudoephedrine 10-240 mg ER (Claritin-D 24 Hour) 500 tabs PO USEASDIRECTD metoprolol succinate ER (Toprol XL) 50 mg PO DAILY 90 days nitroglycerin 0.3 mg sublingual HPI HPI RS f/u post PCI: Details: Callum is a 59 yo male with PMH of Hodkins Lymphoma with mantal radiation, HLD, CAD who was referred for CABG and declined due to history of mantal radiation, who then underwent PCI of LM into LAD and LCx and now presents for follow up. Today he states he has been doing well sent his recent cath procedure. He denies any chest discomfort. He mowed his lawn and had no symptoms. Prior the the stents he says he wouldve gotten chest discomfort. No sob, palpitations, lightheadedness, presyncope, syncope, orthopnea or edema. Right groin cath site feels good. Just started cardiac rehab. Taking all meds as directed. No bleeding issues. [facility] Medical History Hodgkins lymphoma H/O scabies (~2013) Carpal tunnel syndrome, bilateral High cholesterol Dyslipidemia Surgical History History of liver biopsy History of laparotomy History of vasectomy S/P splenectomy S/P radiation therapy Family History Father Hypertension Mother Hypertension Heart attack Social History Patient Tobacco Use Status: Never used Tobacco e-Cigarette/Vaping Use: Never Used service: No Current occupational status: employed Review of Systems Const All systems reviewed & are unremarkable except as noted in HPI and below ENT Denies dizziness Card Denies chest pain, Denies chest pain at rest, Denies chest pain with activity, Denies rapid heart rate, Denies pedal edema, Denies edema, Denies leg edema, Denies lightheadedness, Denies palpitations, Denies dyspnea, Denies dyspnea on exertion and Denies orthopnea Resp Denies cough, Denies dyspnea and Denies dyspnea on exertion GI Denies hematochezia and Denies change in stool character Musc Denies abnormal gait, Reports limited range of motion, Denies muscle cramps, Denies muscle weakness, Denies numbness, Denies radiating pain into limb, Denies stiffness and Denies tingling Neuro Denies abnormal gait, Denies dizziness, Denies numbness and Denies tingling Endo Denies palpitations Physical Exam Vital Signs: Last Vital Signs Pulse 66 04/29/24 08:06 BP 120/62 04/29/24 08:06 BMI result Body Mass Index 28.8 Const General: cooperative, healthy appearing, comfortable and no acute distress Orientation/consciousness: patient oriented x3 Neck Neck: Yes normal visual inspection Resp Effort & Inspection: normal respiratory effort Auscultation: clear to auscultation bilaterally, no crackles, no rales, no rhonchi and no wheezes Cardio Jugular venous distension: no JVD Rate: regular rate Rhythm: regular rhythm Heart sounds: S1 normal heart sound present, S2 normal heart sound present, no murmurs and no rubs Neuro General: patient oriented x3 Extrem Other: right femoral cath site well healed. easily palpable femoral pulse, no bruit. General: Yes normal to inspection and No no pedal edema Psych Appearance: grossly normal Mental Status: mental status grossly normal Speech and movement: Normal speech and movement present Assessment & Plan Assessment & Plan (1) Coronary artery disease: Code(s): I25.10 - Atherosclerotic heart disease of [place] coronary artery without angina pectoris Category: Medical Plan: Reports of exertional chest discomfort. Exercise stress test was abnomal. Echocardiogram done 02/23/2024 showed EF 62%, basal inferior and basal inferior lateral hypokinesis. He then underwent cardiac cath on 02/26/24 which showed significant 3 vessel CAD. He was referred for CABG and declined due to history of mantal radiation. He was then taken back to lab technician 03/25/24 for PCI of LM into LCx and LAD. Today he reports that has been doing well since the stent placement. He has no anginal symptoms. His prior exertional chest discomfort seems resolved. He has started cardiac rehab. Will have him continue aspirin indefinitely. 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 Continue high-dose atorvastatin with ideal LDL goal less than 70. Labs done 02/23/2024 showed LDL 47. Continue metoprolol. Instructed to call for any recurrent chest discomfort. Emergency care if ever needed for symptoms. Cardiology follow-up 3 months, sooner if needed. (2) S/P cardiac cath: Comment: 02/26/24 LM 80% stenosis - distal into LCx and LAD, LAD mild irregularities, LCx prox 80% stenosis, RCA mid 100% stenosis, right and left to right collaterals. Cath 03/25/24 PCI / DARCI of LM into the LCx and LAD. Code(s): Z98.890 - Other specified postprocedural states Category: Surgical Plan: Right femoral catheterization site healing well (3) Stable angina: Code(s): I20.89 - Other forms of angina pectoris Category: Medical Plan: History of stable angina. Has not had recurrent symptoms since his catheterization procedure. Plan Time spent on chart review, documentation, interview and assessment Coding Level of Care Code Est Pt Level 4 (87181) Diagnoses Coronary artery disease I25.10 S/P cardiac cath Z98.890 Stable angina I20.89 Time Spent (min) 28
== END 2024-04-29 08:27 | disposition home or self-care (01) ==
PROVIDERS: PCP Internal Medicine; Visit Provider Nurse Practitioner Family
DX: I25.10 Atherosclerotic heart disease of native coronary artery without angina pectoris (principal); Z98.890 Other specified postprocedural states; I20.89 Other forms of angina pectoris
CPT/HCPCS: 99214

== ENCOUNTER → 2024-04-29 08:03 | Outpatient (BNVA) | payer MEDICAID, SELFPAY | PROVIDERS: PCP Internal Medicine; Visit Provider Nurse Practitioner Family | DX: I25.118 Atherosclerotic heart disease of native coronary artery with other forms of angina pectoris (principal); I10 Essential (primary) hypertension; Z98.61 Coronary angioplasty status; Z98.890 Other specified postprocedural states | CPT/HCPCS: 99212 ==

== ENCOUNTER 2024-05-21 06:52 | Outpatient (REF) | payer MEDICAID, SELFPAY ==
[2024-05-21 07:13] LABS: MANUAL DIFF FLAG NO
[2024-05-21 07:45] LABS: Basophils Percent Auto 0.6 % (0-2); Eosinophils Absolute Auto 0.3 X10*3/uL (0.0-0.4); Eosinophils Percent Auto 3.9 % (0-4); Hematocrit 37.9 % (42.0-52.0); Hemoglobin 12.6 g/dl (14.0-18.0); Imm Gran Abs Auto 0.01 X10*3/uL (0.00-0.03); Imm Gran Pct Auto 0.2 % (0.0-0.4); Lymphocytes Absolute Auto 2.8 X10*3/uL (1.2-4.9); Lymphocytes Percent Auto 42.9 % (20-40); Mean Corpuscular HGB Conc 33.2 g/dl (31.0-36.0); Mean Corpuscular Hemoglobin 29.2 pg (27.0-33.0); Mean Corpuscular Volume 87.7 fL (80.0-98.0); Mean Platelet Volume 10.1 fL (9.4-12.4); Monocytes Absolute Auto 0.7 X10*3/uL (0.1-1.2); Monocytes Percent Auto 10.5 % (2-11); Neutrophils Absolute Auto 2.7 x10*3/uL (2.0-8.3); Neutrophils Percent Auto 41.9 % (45-73); Platelet Count 314 X10*3/uL (160-400); Red Blood Count 4.32 X10*6/uL (4.60-5.80); Red Cell Distribution Width 13.6 % (11.0-16.0); White Blood Count 6.4 X10*3/uL (4.8-10.8)
[2024-05-21 08:28] LABS: Cholesterol 132 mg/dL (<200); HDL Cholesterol 42 mg/dL (>40); LDL Cholesterol Calculated 63 mg/dL (<100); Triglycerides 136 mg/dL (<150)
== END 2024-05-21 06:53 | disposition home or self-care (01) ==
LOC: HO.LAB 06:52
PROVIDERS: PCP Internal Medicine; Visit Provider Internal Medicine
DX: E78.00 Pure hypercholesterolemia, unspecified (principal); I25.10 Atherosclerotic heart disease of native coronary artery without angina pectoris; Z95.818 Presence of other cardiac implants and grafts
CPT/HCPCS: 36415; 80061; 85025

== ENCOUNTER 2024-08-09 10:08 | Outpatient (AMB) | payer MEDICAID, SELFPAY ==
[2024-08-09 10:13] VITALS: BP 108/60; PULSE 96; BMI 28.3
--- NOTE | 2024-08-09 10:13 | MHC.OFFVIS ---
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 He had 1 episode of sharp chest pain in the left thoracic cage area not related to exertion. Symptoms not at all similar to his anginal pain. Overall otherwise he has been doing well. 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 Takes all his medications. Currently on dual antiplatelet therapy. Denies any heart failure symptoms. Denies any prolonged palpitation irregular heartbeat. No bleeding issues or neurologic event. His last LDL was well optimized. [facility] Medical History S/P radiation therapy Hodgkins lymphoma H/O scabies (~2013) Carpal tunnel syndrome, bilateral High cholesterol Dyslipidemia Surgical History S/P cardiac cath History of liver biopsy History of laparotomy History of vasectomy S/P splenectomy Family History Father Hypertension Mother Hypertension Heart attack Social History Patient Tobacco Use Status: Never used Tobacco e-Cigarette/Vaping Use: Never Used service: No Current occupational status: employed Review of Systems Const Denies chills, Denies fatigue, Denies fever(s), Denies frequent falls, Denies weakness, Denies weight gain and Denies weight loss ENT Denies dizziness Card Denies chest pain, Denies leg edema, Denies lightheadedness, Denies palpitations, Denies dyspnea, Denies dyspnea on exertion, Denies orthopnea and Denies other (loss of consciousness) Resp Denies cough, Denies dyspnea and Denies dyspnea on exertion GI Denies hematochezia and Denies change in stool character Musc Denies abnormal gait, Denies muscle weakness, Denies numbness, Denies radiating pain into limb and Denies tingling Neuro Denies abnormal gait, Denies dizziness, Denies frequent falls, Denies numbness, Denies tingling and Denies weakness Endo Denies fatigue and Denies palpitations Physical Exam Vital Signs: Last Vital Signs Pulse 96 08/09/24 10:13 BP 108/60 08/09/24 10:13 BMI result Body Mass Index 28.3 Const General: cooperative, healthy appearing, comfortable and no acute distress Orientation/consciousness: patient oriented x3 Neck Neck: Yes normal visual inspection Resp Effort & Inspection: normal respiratory effort Auscultation: clear to auscultation bilaterally, no crackles, no rales, no rhonchi and no wheezes Cardio Jugular venous distension: no JVD Rate: regular rate Rhythm: regular rhythm Heart sounds: S1 normal heart sound present, S2 normal heart sound present, no murmurs and no rubs Neuro General: patient oriented x3 Extrem Other: right femoral cath site well healed. easily palpable femoral pulse, no bruit. General: Yes normal to inspection and No no pedal edema Psych Appearance: grossly normal Mental Status: mental status grossly normal Speech and movement: Normal speech and movement present Assessment & Plan Assessment & Plan (1) Coronary artery disease: Code(s): I25.10 - Atherosclerotic heart disease of [place] coronary artery without angina pectoris Category: Medical Plan: Coronary artery disease status post complex stenting of left main into LAD and circumflex artery critical left main stenosis, not a surgical candidate due to prior mantle radiation. Also has chronic total occlusion of the RCA which was left untreated. Currently doing well with no current symptoms suggestive angina. He is currently at good functional status. Given his age and low bleeding risk and complex intervention I would continue dual antiplatelet therapy for total of 30 months to even reduce risk of late stent thrombosis. Continue high-intensity statin therapy. LDL is well optimized. Continue aggressive blood pressure control. Continue metoprolol therapy pre. Advised to call me with any recurrent anginal sounding chest discomfort. He understands agrees. Symptoms of unstable angina were discussed with him. Will follow up in the clinic in 6 months time, sooner p.r.n.. Thank you for allowing me to partake in his care Medications: Changed From clopidogrel 75 mg orally Take 4 tablets on day 1, then 1 tablet once a day.; 120 tabs 3RF To clopidogrel 75 mg PO ONCE Coding Level of Care Code Est Pt Level 4 (13596) Diagnoses Coronary artery disease I25.10
== END 2024-08-09 10:39 | disposition home or self-care (01) ==
PROVIDERS: PCP Internal Medicine; Referring Provider Internal Medicine; Visit Provider Internal Medicine Cardiovascular Disease
DX: I25.10 Atherosclerotic heart disease of native coronary artery without angina pectoris (principal)
CPT/HCPCS: 99214

== ENCOUNTER → 2024-08-09 10:08 | Outpatient (BNVA) | payer MEDICAID, SELFPAY | PROVIDERS: PCP Internal Medicine; Visit Provider Internal Medicine Cardiovascular Disease | DX: I25.10 Atherosclerotic heart disease of native coronary artery without angina pectoris (principal) | CPT/HCPCS: 99212 ==

== ENCOUNTER 2024-12-13 16:34 | Emergency (ER) | payer MEDICAID, SELFPAY ==
--- NOTE | ~2024-12-13 | XR_ITS ---
EXAMINATION: XR CHEST CLINICAL INFORMATION: chest pain COMPARISON: None available. TECHNIQUE: 2 views of the chest were obtained. FINDINGS: No significant abnormality is noted involving the heart, lungs, mediastinum, bony thorax or soft tissues. XR/XR chest 2V IMPRESSION: Unremarkable chest examination. Electronically signed by: Josr Kearney MD 12/13/2024 04:47 PM [facility] [place]
--- NOTE | 2024-12-13 16:36 | ECG_ITS ---
Test Reason : CHEST PAIN Blood Pressure : */* mmHG Vent. Rate : 66 BPM Atrial Rate : 66 BPM P-R Int : 164 ms QRS Dur : 94 ms QT Int : 410 ms P-R-T Axes : 59 62 41 degrees QTcB Int : 429 ms Normal sinus rhythm Nonspecific ST abnormality Abnormal ECG When compared with ECG of 12-Jan-2024 13:48, Vent. rate has decreased by 32 bpm Non-specific change in ST segment in Inferior leads Referred By: Kaelyn Zepeda Electronically Signed By: Rodrigo Dennis
[2024-12-13 17:01] LABS: MANUAL DIFF FLAG NO
[2024-12-13 17:03] LABS: Basophils Absolute Auto 0.1 X10*3/uL (0.0-0.2); Basophils Percent Auto 0.7 % (0-2); Eosinophils Absolute Auto 0.2 X10*3/uL (0.0-0.4); Eosinophils Percent Auto 3.1 % (0-4); Hematocrit 39.4 % (42.0-52.0); Hemoglobin 13.1 g/dl (14.0-18.0); Imm Gran Abs Auto 0.02 X10*3/uL (0.00-0.03); Imm Gran Pct Auto 0.3 % (0.0-0.4); Lymphocytes Absolute Auto 2.7 X10*3/uL (1.2-4.9); Lymphocytes Percent Auto 36.9 % (20-40); Mean Corpuscular HGB Conc 33.2 g/dl (31.0-36.0); Mean Corpuscular Hemoglobin 29.6 pg (27.0-33.0); Mean Corpuscular Volume 88.9 fL (80.0-98.0); Mean Platelet Volume 9.9 fL (9.4-12.4); Monocytes Absolute Auto 0.8 X10*3/uL (0.1-1.2); Monocytes Percent Auto 10.4 % (2-11); Neutrophils Absolute Auto 3.6 x10*3/uL (2.0-8.3); Neutrophils Percent Auto 48.6 % (45-73); Platelet Count 287 X10*3/uL (160-400); Red Blood Count 4.43 X10*6/uL (4.60-5.80); Red Cell Distribution Width 13.6 % (11.0-16.0); White Blood Count 7.4 X10*3/uL (4.8-10.8)
[2024-12-13 17:13] LABS: INTERNATIONAL NORM RATIO 0.9 (0.9-1.1); Prothrombin Time 10.6 SEC (10.9-12.4)
[2024-12-13 17:14] VITALS: BP 118/63; PULSE 68; RESP 16; TEMP 36.7; O2SAT 98; BMI 27.4
--- NOTE | 2024-12-13 17:14 | ED.GENADULT ---
HPI - General Adult General Chief complaint: Chest Pain Stated complaint: chest pain Time Seen by Provider: 12/13/24 19:14 History of Present Illness ED Provider: HPI narrative: Patient is 59 years old with past medical history of Hodgkin's lymphoma status post mantle radiation, hypotension, hyperlipidemia status post stent placement in left circumflex and left main into LAD in 03/24 with multiple lesions with collaterals comes here for chest pain for last 1 month off and on getting worse in more often spoke to auditing specialist who asked him to go to the hospital no active chest pain at time of the arrival Related Data Home Medications ?Medication ?Instructions ?Recorded ?Confirmed loratadine-pseudoephedrine ER 10 500 tab PO USEASDIRECTD 03/10/23 08/09/24 mg-240 mg tablet,extended [id number] (Claritin-D 24 Hour) atorvastatin 80 mg tablet 80 mg PO DAILY 02/18/24 08/09/24 nitroglycerin 0.3 mg sublingual 0.3 mg sublingual angina 02/18/24 08/09/24 tablet clopidogrel 75 mg tablet 75 mg PO ONCE 08/09/24 08/09/24 Previous Rx's ?Medication ?Instructions ?Recorded aspirin 81 mg tablet,delayed 81 mg PO DAILY 90 days #90 tabs 08/16/24 release (Ecotrin Low Strength) metoprolol succinate 50 mg 50 mg PO DAILY 90 days #90 tabs 09/08/24 tablet,extended release 24 hr (Toprol XL) Allergies Allergy/AdvReac Type Severity Reaction Status Date / Time No Known Allergies Allergy Verified 12/13/24 17:15 Review of Systems Review of Systems: Yes all other systems are reviewed and are negative [facility] Past Medical History Medical History S/P radiation therapy Hodgkins lymphoma H/O scabies (~2013) Carpal tunnel syndrome, bilateral High cholesterol Dyslipidemia Surgical History S/P cardiac cath History of liver biopsy History of laparotomy History of vasectomy S/P splenectomy Family History Family History Father Hypertension Mother Hypertension Heart attack Social History Social History Patient Tobacco Use Status: Never used Tobacco e-Cigarette/Vaping Use: Never Used Advance Directives: No Advance Directives Information Provided: Yes Do you have a plan to hurt others: No Plan service: No Current occupational status: employed Physical Exam ED Vital Signs: Vital Signs - 24 hr 12/13/24 17:14 12/13/24 19:22 12/13/24 19:53 Temperature 98.1 F Pulse Rate 68 61 Respiratory Rate 16 18 Blood Pressure 118/63 129/69 Pulse Oximetry 98 99 Oxygen Delivery Method Room Air Room Air 12/13/24 19:59 12/13/24 22:04 12/14/24 00:00 Temperature 97.8 F 98.4 F Pulse Rate 62 69 67 Respiratory Rate 14 16 Blood Pressure 117/74 138/77 135/70 Pulse Oximetry 97 96 Oxygen Delivery Method Room Air Room Air BMI result Body Mass Index 28.7 Appearance: Alert. Oriented X3. No acute distress. Eyes: No pallor or icterus ENT: Pharynx normal. Oral Mucosa moist Neck: Normal inspection. Neck supple. CVS: Normal heart rate and rhythm. Pulses normal. Respiratory: No respiratory distress. Equal air entry bilateral, no wheezing/rales/rhonchi Abdomen: Soft and nontender. Bowel sounds are present, no mass palpable, no CVA tenderness Skin: Skin warm and dry. Normal skin color. Normal skin turgor. Extremities: No lower extremity edema. No calf tenderness Neuro: Oriented X 3. No motor deficit. No sensory deficit.No cerebellar signs , cranial nerves II-XII intact Course Course Course Narrative: This is a rapid medical exam performed by Aminah Zepeda NP: Additional HPI, ROS, PE not included below will be deferred to primary provider. Patient is a 59-year-old male with history of stable angina, CAD, 3 stents placed in March, Hodgkins lymphoma presenting to the ED with complaint of episodic chest pain 3-4 times daily for the past month. States pain resolves with nitro. Expect received from Dr. Gordon's office. Plan: EKG, labs, CXR Medications Administered Generic Name Dose Route Start Last Admin Trade Name Freq PRN Reason Stop Dose Admin Heparin Sodium/Sodium Chloride 25,000 unit in 250 mls @ 0 mls/hr 12/13/24 19:45 12/13/24 20:16 Heparin Sodium,Porcine/1/2ns IVCONT 12 units/kg/hr .Q0M NESSA 9.96 mls/hr Administration Protocol Per Protocol Discontinued Medications Generic Name Dose Route Start Last Admin Trade Name Andree PRN Reason Stop Dose Admin Heparin Sodium (Porcine) 5,000 unit 12/13/24 19:35 12/13/24 19:57 Heparin Sodium,Porcine 5,000 Unit/Ml Vial IVPUSH 12/13/24 19:36 5,000 unit ONCE ONE Administration Nitroglycerin 1 inch 12/13/24 19:35 12/13/24 19:59 Nitroglycerin 2 % Oint 1 Gm Packet TRANSDERMA 12/13/24 19:36 1 inch ONCE ONE Administration Medical Decision Making Medical Decision Making MDM Narrative: Patient is 59 years old with past medical history of Hodgkin's lymphoma status post mantle radiation, hypotension, hyperlipidemia status post stent placement in left circumflex and left main into LAD in 03/24 comes here for pain which is going on for last 1 month off and on especially on exertion EKG without any acute ischemic changes troponin is elevated without any delta change case discussed with Dr. Dennis auditing specialist would like the patient to go to [facility] for cardiac catheterization in a.m. for left main lesion started on heparin and nitro paste was applied Patient has stayed in the ER chest pain-free on heparin drip awaiting for bed at [facility] Dr. Thomas accepted the patient Differential Diagnosis Differential Diagnoses: The differential diagnosis associated with the presentation includes Admission/Observation Consideration of admission/observation: Escalation of care including admission/observation considered Lab Data [facility] Lab Attestation statement: I reviewed the patient's lab results. 12/13/24 16:53 12/13/24 16:53 Labs: Lab Results 12/13/24 12/13/24 12/13/24 Range/Units 16:53 19:21 19:52 WBC 7.4 (4.8-10.8) X10*3/uL RBC 4.43 L (4.60-5.80) X10*6/uL Hgb 13.1 L (14.0-18.0) g/dl Hct 39.4 L (42.0-52.0) % MCV 88.9 (80.0-98.0) fL MCH 29.6 (27.0-33.0) pg MCHC 33.2 (31.0-36.0) g/dl RDW 13.6 (11.0-16.0) % Plt Count 287 (160-400) X10*3/uL MPV 9.9 (9.4-12.4) fL Immature Gran % (Auto) 0.3 (0.0-0.4) % Neut % (Auto) 48.6 (45-73) % Lymph % (Auto) 36.9 (20-40) % [place] % (Auto) 10.4 (2-11) % Eos % (Auto) 3.1 (0-4) % Baso % (Auto) 0.7 (0-2) % Lymph # (Auto) 2.7 (1.2-4.9) X10*3/uL [place] # (Auto) 0.8 (0.1-1.2) X10*3/uL Eos # (Auto) 0.2 (0.0-0.4) X10*3/uL Baso # (Auto) 0.1 (0.0-0.2) X10*3/uL Abs Immat Gran (auto) 0.02 (0.00-0.03) X10*3/uL Absolute Neuts (auto) 3.6 (2.0-8.3) x10*3/uL Absolute Nucleated RBC 0.000 (0.0-0.012) X10*3/uL Nucleated RBC % (auto) 0.0 (0.0-0.2) /100WBC PT 10.6 L (10.9-12.4) SEC INR 0.9 (0.9-1.1) aPTT Heparin Protocol 30.5 L (53-77.9) SEC Sodium 143 (135-145) mmol/L Potassium 4.1 (3.3-5.1) mmol/L Chloride 113 H (96-108) mmol/L Carbon Dioxide 24 (22-29) mmol/L Anion Gap 10 L (12-20) BUN 26 H (9-16) mg/dL Creatinine 1.00 (0.5-1.4) mg/dL Estim Creat Clear Calc 81.3 Estimated GFR > 60 Random Glucose 139 H (60-115) mg/dL Calcium 9.2 D (8.4-10.2) mg/dL Magnesium 2.0 (1.6-2.6) mg/dL Total Bilirubin 0.6 (0.0-1.0) mg/dL AST 32 (5-37) U/L ALT 36 (0-40) U/L Alkaline Phosphatase 100 (39-117) U/L Troponin I High Sens 80.1 H D 90.4 H (<3.5-35.0) ng/L B-Natriuretic Peptide 24 (<100) pg/mL Total Protein 7.9 (6.5-8.0) g/dL Albumin 4.2 (3.5-5.0) g/dL Influenza Type A (PCR) NEGATIVE (Negative) Influenza Type B (PCR) NEGATIVE (Negative) RSV RNA Qual (PCR) NEGATIVE (Negative) SARS-CoV-2 RNA (RT-PCR) NEGATIVE (Negative) Independent Interpretation I performed an independent interpretation of an: EKG Interpretation: Normal sinus rhythm heart rate 67 beats per minute normal interval normal axis no acute STT wave changes no acute ischemia Critical Care Time Critical Care Time Critical Care Time: Yes Total Critical Care Time: 55 Attestation: The patient was critically ill with a high probability of imminent or life threatening deterioration. I spent greater than 60???minutes of discontinuous time evaluating the patient,delivering critical care at the bedside, discussing and evaluating pertinent data with consultants. Critical care time does not include time spent performing separately billable procedures or teaching. Total time spent performing critical care was ?55??minutes. Discharge Plan Discharge Clinical Impression: Acute non-ST elevation myocardial infarction (NSTEMI) Patient Disposition: [facility] Transfer Details: [facility] Dr iniguez Prescriptions: No Action aspirin [Ecotrin Low Strength] 81 mg tablet,delayed release (/EC) 81 mg PO DAILY 90 Days Qty: 90 3RF metoprolol succinate [Toprol XL] 50 mg tablet extended release 24 hr 50 mg PO DAILY 90 Days Qty: 90 1RF Claritin-D 24 Hour 10-240 mg Tablet Extended Release 24 Hr 500 tab PO USEASDIRECTD atorvastatin 80 mg tablet 80 mg PO DAILY nitroglycerin 0.3 mg tablet, sublingual 0.3 mg sublingual clopidogrel 75 mg tablet 75 mg PO ONCE Print Language: Chinese
[2024-12-13 17:27] LABS: Troponin-I High Sensitivity 80.1 ng/L (<3.5-35.0)
[2024-12-13 17:35] LABS: B Type Natriuretic Peptide 24 pg/mL (<100)
[2024-12-13 17:41] LABS: Influenza A PCR NEGATIVE (Negative); Influenza B PCR NEGATIVE (Negative); Resp Syncy Virus RNA Qual PCR NEGATIVE (Negative); SARS COV2 PCR INHOUSE NEGATIVE (Negative)
[2024-12-13 18:02] LABS: Alanine Aminotransferase 36 U/L (0-40); Albumin Level 4.2 g/dL (3.5-5.0); Alkaline Phosphatase 100 U/L (39-117); Anion Gap 10 (12-20); Aspartate Amino Transferase 32 U/L (5-37); Bilirubin Total 0.6 mg/dL (0.0-1.0); Blood Urea Nitrogen 26 mg/dL (9-16); Calcium 9.2 mg/dL (8.4-10.2); Carbon Dioxide 24 mmol/L (22-29); Chloride 113 mmol/L (96-108); Creatinine Clr Calc Pharmacy 81.3; Estimated Glomerular Filt Rate > 60; Potassium 4.1 mmol/L (3.3-5.1); Sodium 143 mmol/L (135-145); Total Protein 7.9 g/dL (6.5-8.0)
[2024-12-13 18:25] LABS: Glucose Random 139 mg/dL (60-115)
--- NOTE | 2024-12-13 19:20 | ECG_ITS ---
Test Reason : cp Blood Pressure : */* mmHG Vent. Rate : 67 BPM Atrial Rate : 67 BPM P-R Int : 160 ms QRS Dur : 90 ms QT Int : 394 ms P-R-T Axes : 58 79 60 degrees QTcB Int : 416 ms Normal sinus rhythm Nonspecific ST abnormality Abnormal ECG When compared with ECG of 13-Dec-2024 16:48, No significant change was found Referred By: Bob Spain Electronically Signed By: Rodrigo Dennis
[2024-12-13 19:22] VITALS: BP 129/69; PULSE 61; RESP 18
[2024-12-13 19:53] VITALS: O2SAT 99
[2024-12-13 19:55] VITALS: BMI 28.7
[2024-12-13] MEDS: Heparin Sodium,Porcine 5,000 UNIT/ML VIAL 5000 UNIT IVPUSH (19:57)
[2024-12-13 19:59] VITALS: BP 117/74; PULSE 62
[2024-12-13] MEDS: Nitroglycerin 2 % Oint 1 GM Packet 1 INCH TRANSDERMA (19:59)
[2024-12-13 20:00] LABS: Troponin-I High Sensitivity 90.4 ng/L (<3.5-35.0)
[2024-12-13 20:09] LABS: PTT Heparin Drip 30.5 SEC (53-77.9)
[2024-12-13] MEDS: Heparin Sodium,Porcine/1/2NS 25,000 UNIT/250 ML IV.SOLN 9.96 UNIT IVCONT (20:16)
[2024-12-13 22:04] VITALS: BP 138/77; PULSE 69; RESP 14; TEMP 36.6; O2SAT 97
[2024-12-14] VITALS (10 sets, daily range): BP systolic 113–178; BP diastolic 64–105; PULSE 59–100; RESP 12–18; TEMP 36.6–36.9; O2SAT 96–99
--- NOTE | 2024-12-14 | ECG_ITS ---
Test Reason : chest pain Blood Pressure : */* mmHG Vent. Rate : 82 BPM Atrial Rate : 82 BPM P-R Int : 170 ms QRS Dur : 90 ms QT Int : 368 ms P-R-T Axes : 47 75 64 degrees QTcB Int : 429 ms Normal sinus rhythm ST & T wave abnormality, consider anterolateral ischemia Abnormal ECG When compared with ECG of 13-Dec-2024 19:32, ST now depressed in Anterior leads Referred By: Rodrigo Dennis Electronically Signed By: Rodrigo Dennis
[2024-12-14 02:31] LABS: PTT Heparin Drip 61.2 SEC (53-77.9)
--- NOTE | 2024-12-14 04:10 | PC.NURSE ---
Patient is alert and oriented x4, VSS. Per patient chest pain resolved, nitro patch removed. Heparin drip infusing at 12 units/kg/hr via 20 G IV line in R AC w/o issues. Patient offers no complaints at present, call abel in patient's reach. Plan to transfer to [facility] for cardiac catheterization in am.
--- NOTE | 2024-12-14 04:16 | PC.NURSE ---
Per Dr Hilton, no new orders at this time, SBP's over 90 is fine.
[2024-12-14 06:28] LABS: Hematocrit 39.2 % (42.0-52.0); Hemoglobin 13.3 g/dl (14.0-18.0); Mean Corpuscular HGB Conc 33.9 g/dl (31.0-36.0); Mean Corpuscular Hemoglobin 29.3 pg (27.0-33.0); Mean Corpuscular Volume 86.3 fL (80.0-98.0); Mean Platelet Volume 9.7 fL (9.4-12.4); Platelet Count 273 X10*3/uL (160-400); Red Blood Count 4.54 X10*6/uL (4.60-5.80); Red Cell Distribution Width 13.6 % (11.0-16.0); White Blood Count 7.9 X10*3/uL (4.8-10.8)
[2024-12-14 06:36] LABS: Prothrombin Time 11.2 SEC (10.9-12.4)
--- NOTE | 2024-12-14 08:40 | PC.NURSE ---
aPTT @0830 57.1, no rate change to Heparin drip. Continues to infuse at 12units/kg/hr. Call abel within reach, all needs met at this time.
[2024-12-14 08:52] LABS: PTT Heparin Drip 57.1 SEC (53-77.9)
[2024-12-14] MEDS: Aspirin 81 MG TAB.CHEW PO (09:17)
[2024-12-14] MEDS: Clopidogrel Bisulfate 75 MG TABLET PO (09:17)
[2024-12-14] MEDS: Metoprolol Succinate ER 50 MG TAB.ER.24H PO (09:17)
[2024-12-14] MEDS: Nitroglycerin/D5W 100 MG/250 ML INFUS..BTL IVCONT (09:20)
[2024-12-14] MEDS: Metoprolol Tartrate 5 MG/5 ML VIAL 2.5 MG IVPUSH (09:30)
[2024-12-14] MEDS: LORazepam 2 MG/ML VIAL 0.5 MG IVPUSH (09:38)
--- NOTE | 2024-12-14 10:04 | PC.NURSE ---
Pt endorsing cp/mild sob, cardiology and this RN at bedside. BP noted to be 100s/100s, tachycardic on patient monitor, HR-100s. Verbal order by for nitro drip @0920 starting @ 33mcg. Pt continues to have CP and hypertension. Tech at bedside for stat EKG. Verbal order @ 0930 to titrate Nitro drip to 50mcg. BP remains high 140s/80s. Verbal order to give 2.5mg metroprolol IVP. BP cycling q 5 to monitor. Verbal order to give 0.5mg Ativan d/t pt anxiety. Refer to MAR for times/titration of meds. 20g IV placed Left AC. 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
--- NOTE | 2024-12-14 13:14 | P.CONCA_ITS ---
History of Present Illness History of Present Illness Date of Service: 12/14/24 Requesting physician: Bob Spain Chief complaint: chest pain, nstemi Narrative: [age] year gentleman with known history of coronary artery disease and history of lymphoma with mantle radiation in the past. Due to significant chest radiation he was deemed a nonsurgical candidate by Cardiothoracic surgery and underwent complex PCI to left main bifurcation in 03/2024. He said he did fine until a month ago when he started experiencing some chest discomfort radiated into his neck and arm. This has been a consistent symptom almost daily and he decided come to the emergency department. He had mild troponin elevation and initial EKG was normal. He was started on heparin drip. Today morning was seen at bedside. He was complaining of chest discomfort and telemetry showed ST depressions. We did an EKG which showed downsloping ST depressions in the precordial leads. Given left main stent we were quite concerned about in stent restenosis as the EKG was equivalent for ischemia in the left main territory. He was started on nitroglycerin drip and was given IV metoprolol along with his oral medications. He was given aspirin Plavix. He subsequently was transferred emergently to [facility] for cardiac catheterization [facility] Past Medical History Medical History S/P radiation therapy Hodgkins lymphoma H/O scabies (~2013) Carpal tunnel syndrome, bilateral High cholesterol Dyslipidemia Family History Family History Father Hypertension Mother Hypertension Heart attack Surgical History Surgical History S/P cardiac cath History of liver biopsy History of laparotomy History of vasectomy S/P splenectomy Social History Social History Patient Tobacco Use Status: Never used Tobacco Smoked in Last 30 Days: No e-Cigarette/Vaping Use: Never Used Use of substances other than those prescribed or required for medical reasons: No Advance Directives: No Advance Directives Information Provided: Yes Do you have a plan to hurt others: No Plan service: No Current occupational status: employed Meds Allergies Allergy/AdvReac Type Severity Reaction Status Date / Time No Known Allergies Allergy Verified 12/13/24 17:15 Home Medications ?Medication ?Instructions ?Recorded ?Confirmed ?Last Taken ?Type loratadine-pseudoephedrine ER 10 500 tab PO USEASDIRECTD 03/10/23 08/09/24 Unknown History mg-240 mg tablet,extended [id number] (Claritin-D 24 Hour) atorvastatin 80 mg tablet 80 mg PO DAILY 02/18/24 08/09/24 Unknown History nitroglycerin 0.3 mg sublingual 0.3 mg sublingual angina 02/18/24 08/09/24 Unknown History tablet clopidogrel 75 mg tablet 75 mg PO ONCE 08/09/24 08/09/24 Unknown History Physical Exam 2 Vital Signs: Vital Signs: Last Vital Signs Temp 98.2 F 12/14/24 10:19 Pulse 85 12/14/24 10:19 Resp 15 12/14/24 10:19 BP 156/101 H 12/14/24 10:19 Pulse Ox 97 12/14/24 10:19 O2 Del Method Room Air 12/14/24 10:19 BMI result Body Mass Index 28.7 GENERAL APPEARANCE: Distressed and tearful. NECK: no carotid bruit, no jugular venous distention. SKIN: no suspicious lesions, warm and dry. HEART: no murmurs, regular rate and rhythm. LUNGS: clear to auscultation bilaterally. ABDOMEN: soft, nontender. EXTREMITIES: no edema. PERIPHERAL PULSES: equal. NEUROLOGIC: No gross deficits, AAO X 3 Objective Labs and Meds 12/14/24 06:22 12/13/24 16:53 Lab results: Laboratory Results - last 24 hr 12/13/24 12/13/24 12/13/24 16:53 19:21 19:52 WBC 7.4 RBC 4.43 L Hgb 13.1 L Hct 39.4 L MCV 88.9 MCH 29.6 MCHC 33.2 RDW 13.6 Plt Count 287 MPV 9.9 Immature Gran % (Auto) 0.3 Neut % (Auto) 48.6 Lymph % (Auto) 36.9 [place] % (Auto) 10.4 Eos % (Auto) 3.1 Baso % (Auto) 0.7 Lymph # (Auto) 2.7 [place] # (Auto) 0.8 Eos # (Auto) 0.2 Baso # (Auto) 0.1 Abs Immat Gran (auto) 0.02 Absolute Neuts (auto) 3.6 Absolute Nucleated RBC 0.000 Nucleated RBC % (auto) 0.0 PT 10.6 L INR 0.9 aPTT Heparin Protocol 30.5 L Sodium 143 Potassium 4.1 Chloride 113 H Carbon Dioxide 24 Anion Gap 10 L BUN 26 H Creatinine 1.00 Estim Creat Clear Calc 81.3 Estimated GFR > 60 Random Glucose 139 H Calcium 9.2 D Magnesium 2.0 Total Bilirubin 0.6 AST 32 ALT 36 Alkaline Phosphatase 100 Troponin I High Sens 80.1 H D 90.4 H B-Natriuretic Peptide 24 Total Protein 7.9 Albumin 4.2 Influenza Type A (PCR) NEGATIVE Influenza Type B (PCR) NEGATIVE RSV RNA Qual (PCR) NEGATIVE SARS-CoV-2 RNA (RT-PCR) NEGATIVE 12/14/24 12/14/24 12/14/24 02:16 06:22 08:37 WBC 7.9 RBC 4.54 L Hgb 13.3 L Hct 39.2 L MCV 86.3 MCH 29.3 MCHC 33.9 RDW 13.6 Plt Count 273 MPV 9.7 Immature Gran % (Auto) Neut % (Auto) Lymph % (Auto) [place] % (Auto) Eos % (Auto) Baso % (Auto) Lymph # (Auto) [place] # (Auto) Eos # (Auto) Baso # (Auto) Abs Immat Gran (auto) Absolute Neuts (auto) Absolute Nucleated RBC 0.000 Nucleated RBC % (auto) 0.0 PT 11.2 INR 1.0 aPTT Heparin Protocol 61.2 D 57.1 Sodium Potassium Chloride Carbon Dioxide Anion Gap BUN Creatinine Estim Creat Clear Calc Estimated GFR Random Glucose Calcium Magnesium Total Bilirubin AST ALT Alkaline Phosphatase Troponin I High Sens B-Natriuretic Peptide Total Protein Albumin Influenza Type A (PCR) Influenza Type B (PCR) RSV RNA Qual (PCR) SARS-CoV-2 RNA (RT-PCR) Imaging Radiologist's impression: Impressions Chest X-Ray 12/13/24 16:36 IMPRESSION: Unremarkable chest examination. Electronically signed by: Josr Kearney MD 12/13/2024 04:47 PM [facility] Assessment and Plan (1) Acute non-ST elevation myocardial infarction (NSTEMI): Status: Acute Plan Pleasant 59 year gentleman with background of left main bifurcation PCI presenting with chest pain and non ST-elevation MN. He has dynamic EKG changes with precordial ST depressions and T-wave inversions. Changes are quite concerning for proximal LAD or left main stenosis. He also is approximately 9 months from his previous stenting and InStent restenosis is a fair possibility. He will be transferred emergently state to cardiac labor contract analyst and we will do a diagnostic angiogram on him. Further management will be decided after angiography. In the meantime continue heparin drip. He will receive his morning dose of aspirin and Plavix along with Toprol-XL. Continue highest intensity statin therapy. Thank you for allowing me to participate in the care of your patient. Please feel free to contact me if you have any questions. Total time managing care of this patient today: 45 minutes. Procedures Date of Service Date of Service: 12/14/24
== END 2024-12-14 10:20 | disposition short-term general hospital (02) ==
PROVIDERS: Emergency Medicine; Registered Nurse Emergency; Emergency Provider Internal Medicine; PCP Internal Medicine
DX: I21.4 Non-ST elevation (NSTEMI) myocardial infarction (principal); R07.9 Chest pain, unspecified; Z03.818 Encounter for observation for suspected exposure to other biological agents ruled out; E78.5 Hyperlipidemia, unspecified; C81.90 Hodgkin lymphoma, unspecified, unspecified site; Z95.5 Presence of coronary angioplasty implant and graft; Z92.3 Personal history of irradiation; Z79.82 Long term (current) use of aspirin; Z79.02 Long term (current) use of antithrombotics/antiplatelets; Z79.899 Other long term (current) drug therapy
CPT/HCPCS: 0241U; 36415; 71046; 80053; 83735; 83880; 84484; 85025; 85027; 85610; 85730; 93005; 99285; J1644; J2060; J2305

== ENCOUNTER → 2024-12-13 16:36 | Outpatient (BNV) | payer MEDICAID, SELFPAY | PROVIDERS: PCP Internal Medicine; Visit Provider Radiology Diagnostic Radiology | DX: R07.9 Chest pain, unspecified (principal) | CPT/HCPCS: 71046 ==

== ENCOUNTER → 2024-12-14 09:19 | Outpatient (BNV) | payer MEDICAID, SELFPAY | PROVIDERS: Emergency Provider Internal Medicine; PCP Internal Medicine; Visit Provider Internal Medicine Cardiovascular Disease | DX: R94.31 Abnormal electrocardiogram [ECG] [EKG] (principal) | CPT/HCPCS: 93010 ==

== ENCOUNTER → 2024-12-14 23:59 | Outpatient (BNV) | payer MEDICAID, SELFPAY | PROVIDERS: PCP Internal Medicine; Visit Provider Internal Medicine Cardiovascular Disease | DX: I21.4 Non-ST elevation (NSTEMI) myocardial infarction (principal) | CPT/HCPCS: 92928; 92978; 92979; 93458; 99152 ==

== ENCOUNTER 2024-12-28 07:56 | Outpatient (AMB) | payer MEDICAID, SELFPAY ==
[2024-12-28 08:15] VITALS: BP 114/62; PULSE 82; BMI 27.8
--- NOTE | 2024-12-28 08:15 | MHC.OFFVIS ---
Vital Signs 12/28/24 08:15 Height 5 ft 7 in Weight 177 lb 4.026 oz BMI 27.8 BP 114/62 Blood Pressure Location Lt brachial Position Sitting Pulse 82 Pulse Source Pulse Oximeter Intake Visit Reasons: 2 wk fu card cath (NS) Sericulture Teacher Required: No Allergies No Known Allergies Allergy (Verified 12/28/24 08:17) Medication List - Last Reconciled 12/28/24 by Blanca Small NP-C aspirin (Ecotrin Low Strength) 81 mg PO DAILY 90 days atorvastatin 80 mg PO DAILY clopidogrel 75 mg PO ONCE loratadine-pseudoephedrine 10-240 mg ER (Claritin-D 24 Hour) 500 tabs PO USEASDIRECTD metoprolol succinate ER (Toprol XL) 25 mg PO DAILY nitroglycerin 0.3 mg sublingual HPI HPI 2 wk fu card cath (NS): Details: Klaudia is a 59-year-old male with past medical history of hyperlipidemia, Hodgkin's lymphoma remotely status post mantle radiation, CAD with complex left main to LAD and left circumflex stenting 03/2024, 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 His troponin was mildly elevated and EKG showed ischemic findings. He was transferred to [facility] and underwent cardiac catheterization showing mid LAD and circumflex stenosis, 2 stents were placed. He now presents for follow-up. Today he reports that he has been doing well since that time. He has not had any recurrent chest discomfort. He had been feeling an intermittent sensation across his upper chest and over his shoulders into his upper back. This was happening randomly without pattern. It resolved after his most recent stenting. He denies having shortness of breath, PND, orthopnea or edema. No heart palpitations, lightheadedness, presyncope, syncope. He has been doing only light physical activity. 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 He is not interested in cardiac rehab. He says he has gone before and prefers to do light exercises at home using his Peloton bike. Taking all meds as directed. No bleeding issues reported. [facility] Medical History (Updated 12/28/24 @ 09:48 by Blanca Small, CONTINUITY READER-C) Hodgkins lymphoma S/P radiation therapy Hodgkins lymphoma H/O scabies (~2013) Carpal tunnel syndrome, bilateral High cholesterol Dyslipidemia Surgical History (Updated 12/28/24 @ 10:26 by SONYA JordanC) S/P cardiac cath History of liver biopsy History of laparotomy History of vasectomy S/P splenectomy Family History Father Hypertension Mother Hypertension Heart attack Social History Patient Tobacco Use Status: Never used Tobacco e-Cigarette/Vaping Use: Never Used service: No Current occupational status: employed Review of Systems Const All systems reviewed & are unremarkable except as noted in HPI and below ENT Denies dizziness Card Denies chest pain, Denies chest pain at rest, Denies chest pain with activity, Denies rapid heart rate, Denies pedal edema, Denies edema, Denies leg edema, Denies lightheadedness, Denies palpitations, Denies dyspnea, Denies dyspnea on exertion and Denies orthopnea Resp Denies cough, Denies dyspnea and Denies dyspnea on exertion GI Denies hematochezia and Denies change in stool character Musc Denies abnormal gait, Denies limited range of motion, Denies muscle cramps, Denies muscle weakness, Denies numbness, Denies radiating pain into limb, Denies stiffness and Denies tingling Neuro Denies abnormal gait, Denies dizziness, Denies numbness and Denies tingling Endo Denies palpitations Physical Exam Vital Signs: Last Vital Signs Pulse 82 12/28/24 08:15 BP 114/62 12/28/24 08:15 BMI result Body Mass Index 27.8 Const General: cooperative, healthy appearing, comfortable and no acute distress Orientation/consciousness: patient oriented x3 Neck Neck: Yes normal visual inspection Resp Effort & Inspection: normal respiratory effort Auscultation: clear to auscultation bilaterally, no rales, no rhonchi and no wheezes Cardio Jugular venous distension: no JVD Rate: regular rate Rhythm: regular rhythm Heart sounds: S1 normal heart sound present, S2 normal heart sound present, no murmurs and no rubs Neuro General: patient oriented x3 Extrem Other: right femoral cath site with palpable nodule, nontender, easily palp femoral pulse, no bruit. 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 He was referred to Cardiac surgery and deemed not a good surgical candidate due to history of mantle radiation and scarring. He was then taken back to the clinical laboratory technician where he underwent complex stenting of the left main into the LAD and left circumflex. Echocardiogram from 02/23/2024 showed EF 62%, basal inferior and basal inferior lateral segments hypokinetic. He had done well until recently when he started getting intermittent chest discomfort. He was sent to the ER for evaluation and did have mildly elevated troponins and EKG changes of ischemia. He underwent a repeat cardiac catheterization on 12/13/2024 showing mid LAD and mid circumflex stenosis, stents were placed in each vessel. At this time he no longer has chest discomfort. All the above reviewed with him, questions answered. Continue aspirin indefinitely. Continue dual antiplatelet therapy with [facility]. Continue high-dose atorvastatin with ideal LDL goal less than 70. Labs done 05/21/2024 showed LDL 63. Continue metoprolol for good heart rate and blood pressure control. Blood pressure today 114/62. Signs and symptoms of angina reviewed with him. He declines cardiac rehab. Instructed on light physical activity and increase as tolerated. Cardiology follow-up 3 months, sooner if needed. (2) S/P cardiac cath: Comment: 12/15/2024, patent stents to the left main into the LAD and left circumflex, stenosis of the mid LAD and left circumflex, stents placed. 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 12/13/2024, DARCI to the mid LAD and mid left circumflex Code(s): Z95.5 - Presence of coronary angioplasty implant and graft Category: Surgical Plan: As above (4) Hodgkins lymphoma: Comment: Hx Mantal Radiation, 30+yr ago Code(s): C81.90 - Hodgkin lymphoma, unspecified, unspecified site Category: Medical Plan: As above (5) Hospital discharge follow-up: Code(s): Z09 - Encounter for follow-up examination after completed treatment for conditions other than malignant neoplasm Category: Medical Plan: As above Plan Time spent on chart review, documentation, interview, assessment Medications: Changed From metoprolol succinate ER (Toprol XL) 50 mg PO DAILY 90 days 90 tabs 1RF R07.9 - Chest pain, unspecified To metoprolol succinate ER (Toprol XL) 25 mg PO DAILY R07.9 - Chest pain, unspecified Coding Level of Care Code Est Pt Level 4 (89375) Complex EM visit Add On G2211 Diagnoses Coronary artery disease I25.10 S/P cardiac cath Z98.890 Stented coronary artery Z95.5 Hodgkins lymphoma C81.90 Hospital discharge follow-up Z09 Time Spent (min) 40
== END 2024-12-28 08:52 | disposition home or self-care (01) ==
PROVIDERS: PCP Internal Medicine; Visit Provider Nurse Practitioner Family
DX: I25.10 Atherosclerotic heart disease of native coronary artery without angina pectoris (principal); Z98.890 Other specified postprocedural states; Z95.5 Presence of coronary angioplasty implant and graft; C81.90 Hodgkin lymphoma, unspecified, unspecified site; Z09 Encounter for follow-up examination after completed treatment for conditions other than malignant neoplasm
CPT/HCPCS: 99214

== ENCOUNTER → 2024-12-28 07:56 | Outpatient (BNVA) | payer MEDICAID, SELFPAY | PROVIDERS: PCP Internal Medicine; Visit Provider Nurse Practitioner Family | DX: I25.10 Atherosclerotic heart disease of native coronary artery without angina pectoris (principal); E78.5 Hyperlipidemia, unspecified; C81.90 Hodgkin lymphoma, unspecified, unspecified site; R07.9 Chest pain, unspecified; Z09 Encounter for follow-up examination after completed treatment for conditions other than malignant neoplasm; Z95.5 Presence of coronary angioplasty implant and graft; Z79.890 Hormone replacement therapy | CPT/HCPCS: 99212 ==

== ENCOUNTER 2025-03-28 07:47 | Outpatient (REF) | payer MEDICAID, SELFPAY ==
[2025-03-28 07:57] LABS: MANUAL DIFF FLAG NO
[2025-03-28 08:29] LABS: Basophils Absolute Auto 0.1 X10*3/uL (0.0-0.2); Basophils Percent Auto 0.8 % (0-2); Eosinophils Absolute Auto 0.3 X10*3/uL (0.0-0.4); Eosinophils Percent Auto 4.1 % (0-4); Hematocrit 41.2 % (42.0-52.0); Hemoglobin 13.8 g/dl (14.0-18.0); Imm Gran Abs Auto 0.02 X10*3/uL (0.00-0.03); Imm Gran Pct Auto 0.3 % (0.0-0.4); Lymphocytes Absolute Auto 2.8 X10*3/uL (1.2-4.9); Lymphocytes Percent Auto 38.4 % (20-40); Mean Corpuscular HGB Conc 33.5 g/dl (31.0-36.0); Mean Corpuscular Hemoglobin 29.1 pg (27.0-33.0); Mean Corpuscular Volume 86.9 fL (80.0-98.0); Mean Platelet Volume 9.8 fL (9.4-12.4); Monocytes Absolute Auto 0.7 X10*3/uL (0.1-1.2); Monocytes Percent Auto 10.3 % (2-11); Neutrophils Absolute Auto 3.3 x10*3/uL (2.0-8.3); Neutrophils Percent Auto 46.1 % (45-73); Platelet Count 318 X10*3/uL (160-400); Red Blood Count 4.74 X10*6/uL (4.60-5.80); Red Cell Distribution Width 12.9 % (11.0-16.0); White Blood Count 7.2 X10*3/uL (4.8-10.8)
[2025-03-28 08:57] LABS: Alanine Aminotransferase 44 U/L (0-40); Albumin Level 4.3 g/dL (3.5-5.0); Alkaline Phosphatase 76 U/L (39-117); Anion Gap 12 (12-20); Aspartate Amino Transferase 42 U/L (5-37); Bilirubin Total 0.5 mg/dL (0.0-1.0); Blood Urea Nitrogen 13 mg/dL (9-16); Calcium 9.4 mg/dL (8.4-10.2); Carbon Dioxide 28 mmol/L (22-29); Chloride 107 mmol/L (96-108); Cholesterol 82 mg/dL (<200); Estimated Glomerular Filt Rate > 60; Glucose Random 107 mg/dL (60-115); HDL Cholesterol 46 mg/dL (>40); LDL Cholesterol Calculated 17 mg/dL (<100); Potassium 4.5 mmol/L (3.3-5.1); Sodium 142 mmol/L (135-145); Total Protein 7.4 g/dL (6.5-8.0); Triglycerides 99 mg/dL (<150)
[2025-03-28 09:17] LABS: Prostate Specific Antigen Scr 0.41 ng/mL (<0.05-4.0)
== END 2025-03-28 07:48 | disposition home or self-care (01) ==
LOC: HO.LAB 07:47
PROVIDERS: PCP Internal Medicine; Visit Provider Internal Medicine
DX: E78.00 Pure hypercholesterolemia, unspecified (principal); I10 Essential (primary) hypertension; I21.4 Non-ST elevation (NSTEMI) myocardial infarction; I25.10 Atherosclerotic heart disease of native coronary artery without angina pectoris; Z85.71 Personal history of Hodgkin lymphoma
CPT/HCPCS: 36415; 80053; 80061; 84153; 85025; 99212

== ENCOUNTER 2025-03-28 08:43 | Outpatient (AMB) | payer MEDICAID, SELFPAY ==
[2025-03-28 08:47] VITALS: BP 110/60; PULSE 74; BMI 28.3
--- NOTE | 2025-03-28 08:47 | MHC.OFFVIS ---
Vital Signs 03/28/25 08:47 Height 5 ft 7 in Weight 180 lb 12.465 oz BMI 28.3 BP 110/60 Blood Pressure Location Lt brachial Position Sitting Pulse 74 Intake Visit Reasons: 3m follow up Intake Note: 3 month follow-up feeling good Valuer Required: No Allergies No Known Allergies Allergy (Verified 12/28/24 08:17) Medication List - Last Reconciled 03/28/25 by Vladimir Gordon MD aspirin (Ecotrin Low Strength) 81 mg PO DAILY 90 days clopidogrel 75 mg PO ONCE loratadine-pseudoephedrine 10-240 mg ER (Claritin-D 24 Hour) 500 tabs PO USEASDIRECTD metoprolol succinate ER 25 mg PO DAILY nitroglycerin 0.3 mg sublingual rosuvastatin 40 mg PO BEDTIME HPI Comments Details: Callum comes for follow-up in 3 months. He has been doing well from cardiac perspective. Remains functional and has had no exertional symptoms of chest pain or shortness of breath. Taking all his medications. Last LDL well optimized at 17. He denies any heart failure symptoms. No lightheadedness, syncope. Takes all his medications. No bleeding issues. [facility] Medical History Hodgkins lymphoma S/P radiation therapy Hodgkins lymphoma H/O scabies (~2013) Carpal tunnel syndrome, bilateral High cholesterol Dyslipidemia Surgical History S/P cardiac cath History of liver biopsy History of laparotomy History of vasectomy S/P splenectomy Family History Father Hypertension Mother Hypertension Heart attack Social History Patient Tobacco Use Status: Never used Tobacco e-Cigarette/Vaping Use: Never Used service: No Current occupational status: employed Review of Systems Const Denies chills, Denies fatigue, Denies fever(s), Denies frequent falls, Denies weakness, Denies weight gain and Denies weight loss ENT Denies dizziness Card Denies chest pain, Denies leg edema, Denies lightheadedness, Denies palpitations, Denies dyspnea, Denies dyspnea on exertion, Denies orthopnea and Denies other (loss of consciousness) Resp Denies cough, Denies dyspnea and Denies dyspnea on exertion GI Denies hematochezia and Denies change in stool character Musc Denies abnormal gait, Denies muscle weakness, Denies numbness, Denies radiating pain into limb and Denies tingling Neuro Denies abnormal gait, Denies dizziness, Denies frequent falls, Denies numbness, Denies tingling and Denies weakness Endo Denies fatigue and Denies palpitations Physical Exam Vital Signs: Last Vital Signs Pulse 74 03/28/25 08:47 BP 110/60 03/28/25 08:47 BMI result Body Mass Index 28.3 Const General: cooperative, healthy appearing, comfortable and no acute distress Orientation/consciousness: patient oriented x3 Neck Neck: Yes normal visual inspection Resp Effort & Inspection: normal respiratory effort Auscultation: clear to auscultation bilaterally, no rales, no rhonchi and no wheezes Cardio Jugular venous distension: no JVD Rate: regular rate Rhythm: regular rhythm Heart sounds: S1 normal heart sound present, S2 normal heart sound present, no murmurs and no rubs Neuro General: patient oriented x3 Extrem Other: right femoral cath site with palpable nodule, nontender, easily palp femoral pulse, no bruit. General: Yes normal to inspection, No no pedal edema and No calf tenderness Psych Appearance: grossly normal Mental Status: mental status grossly normal Speech and movement: Normal speech and movement present Assessment & Plan Assessment & Plan (1) Coronary artery disease: Code(s): I25.10 - Atherosclerotic heart disease of [place] coronary artery without angina pectoris Category: Medical Plan: Complex coronary artery disease with prior left main stenting into LAD and circumflex with a chronic total occlusion of RCA suspected to be related to mantle radiation and/hyperlipidemia. Last December again he had unfortunately repeat symptoms and underwent stenting of the mid LAD and circumflex artery. Since then he has been taking his dual antiplatelet therapy religiously. He has been participate in regular physical activity. His LDL is currently extremely well optimized at 17 mg/dL continue aggressive lipid lowering given repeat requirements for stenting on high-intensity statin therapy. I would also continues dual antiplatelet therapy as he was low bleeding risk for total of 30 months to reduce risk of late stent thrombosis. Encouraged to continue maintain activity level as tolerated. Signs and symptoms of angina were discussed. Use of nitroglycerin was discussed if needed. Will follow up in the clinic in 6 months, sooner p.r.n.. Thank you for allowing me to partake in his care Coding Level of Care Code Est Pt Level 4 (77413) Complex EM visit Add On G2211 Diagnoses Coronary artery disease I25.10
== END 2025-03-28 09:11 | disposition home or self-care (01) ==
LOC: HO.HCS 08:44
PROVIDERS: PCP Internal Medicine; Visit Provider Internal Medicine Cardiovascular Disease
DX: I25.10 Atherosclerotic heart disease of native coronary artery without angina pectoris (principal)
CPT/HCPCS: 99214

== ENCOUNTER 2025-09-26 08:22 | Outpatient (AMB) | payer MEDICAID, SELFPAY ==
--- NOTE | 2025-09-26 08:32 | MHC.OFFVIS ---
Vital Signs 09/26/25 08:34 Weight 181 lb 3.52 oz BP 108/52 L Blood Pressure Location Lt brachial Position Sitting Pulse 71 Pulse Source Pulse Oximeter Intake Visit Reasons: 6 mth f/up Intake Note: 6 month follow up Risk Control Specialist Required: No Accompanied by: Self / Same As Patient Allergies No Known Allergies Allergy (Verified 09/26/25 08:36) Medication List - Last Reconciled 09/26/25 by Vladimir Gordon MD aspirin 81 mg PO DAILY clopidogrel 75 mg PO ONCE loratadine-pseudoephedrine 10-240 mg ER (Claritin-D 24 Hour) 500 tabs PO USEASDIRECTD metoprolol succinate ER 25 mg PO DAILY nitroglycerin 0.3 mg sublingual rosuvastatin 40 mg PO BEDTIME HPI Comments Details: Callum comes for follow-up. He has been doing well from cardiac perspective. He has not had any recurrent anginal symptoms. He recently did take Cialis for ED and had no side effects. He has not had to take any recent nitroglycerin. He is taking all his medication without any issues. No recent lipid panel. Blood pressures remained stable. Taking all his medications without issues. [facility] Medical History Hodgkins lymphoma Hodgkins lymphoma H/O scabies (~2013) Carpal tunnel syndrome, bilateral High cholesterol Dyslipidemia Surgical History S/P radiation therapy S/P cardiac cath History of liver biopsy History of laparotomy History of vasectomy S/P splenectomy Family History Father Hypertension Mother Hypertension Heart attack Social History Patient Tobacco Use Status: Never used Tobacco e-Cigarette/Vaping Use: Never Used service: No Current occupational status: employed Review of Systems Const Denies daytime sleepiness, Denies difficulty sleeping, Denies snoring, Denies stops breathing during sleep and Denies weakness Card Denies chest pain, Denies rapid heart rate, Denies irregular heart rhythm, Denies claudication, Denies leg edema, Denies lightheadedness, Denies palpitations, Denies dyspnea, Denies dyspnea on exertion, Denies orthopnea, Denies paroxysmal nocturnal dyspnea and Denies slow heart rate Resp Denies cough, Denies dyspnea, Denies dyspnea on exertion and Denies snoring GI Reports no additional complaints, Denies hematochezia, Denies change in stool character and Denies dyspepsia Musc Denies abnormal gait, Denies muscle weakness and Denies numbness Neuro Denies abnormal gait, Denies numbness and Denies weakness Endo Denies palpitations Physical Exam Vital Signs: Last Vital Signs Pulse 71 09/26/25 08:34 BP 108/52 L 09/26/25 08:34 Const General: cooperative, healthy appearing, comfortable and no acute distress Orientation/consciousness: patient oriented x3 Neck Neck: Yes normal visual inspection Resp Effort & Inspection: normal respiratory effort Auscultation: clear to auscultation bilaterally, no rales, no rhonchi and no wheezes Cardio Jugular venous distension: no JVD Rate: regular rate Rhythm: regular rhythm Heart sounds: S1 normal heart sound present, S2 normal heart sound present, Murmur heart sound present systolic early and no rubs Neuro General: patient oriented x3 Extrem Other: right femoral cath site with palpable nodule, nontender, easily palp femoral pulse, no bruit. General: Yes normal to inspection, No no pedal edema and No calf tenderness Psych Appearance: grossly normal Mental Status: mental status grossly normal Speech and movement: Normal speech and movement present Assessment & Plan Assessment & Plan (1) Coronary artery disease: Code(s): I25.10 - Atherosclerotic heart disease of [place] coronary artery without angina pectoris Category: Medical Plan: Coronary artery disease with complex stenting prior of left main and subsequently off LAD and circumflex for unstable angina. Since then he has been doing well. Currently taking dual antiplatelet therapy which I recommend to continue for prolonged period of time for 30 months as he is lower bleeding risk. This will lead to lower risk of late stent thrombosis. Continue high-intensity statin therapy. Advised lipid panel in near future. Continue management. Advise use of Cialis in setting of nitroglycerin. He understands. Advised to call me with any new anginal symptoms. Possibly has mild aortic stenosis by clinical exam. Will follow-up echocardiogram next year. Continue aggressive vascular risk factor modification as above. Will follow up in the clinic in 1 year's time, sooner PRN. Thank you for allowing me to partake in his care Coding Level of Care Code Est Pt Level 4 (56236) Complex EM visit Add On G2211 Diagnoses Coronary artery disease I25.10
[2025-09-26 08:34] VITALS: BP 108/52; PULSE 71
--- OUTSIDE RECORDS SUMMARY | 2025-09-26 08:39 | XMS_ITS | Clinical Summary ---
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 Name Role Phone Genesis Gray Unavailable [phone] Encounters Date Type Department Care Team Description 08/08/2025 10:00 AM EDT Lab [facility] [address] [place] [id number] 08/08/2025 Travel 08/08/2025 Orders Only [facility] [address] [place] [id number] Tangela, Justyna A, CGC Muscle weakness from Last 3 Months Social History Tobacco Use Types Packs/Day Years Used Date Smoking Tobacco: Never Assessed Sex and Gender Information Value Date Recorded Sex Assigned at Not on file Legal Sex Male 9:38 AM EDT Gender Identity Not on file Sexual Orientation Not on file Plan of Treatment Health Maintenance Due Date Last Done Comments Chlamydia and Gonorrhea Screening 1965 HIV Screening 1966 MMR Vaccines (1 of 1 - Stand sarina series) 1967 DTaP/Tdap/Td Vaccines (1 - Tdap) 1973 Varicella Vaccines (1 of 2 - 13+ 2-dose series) 1979 Hepatitis C Screening 02/26/1984 Hepatitis B Vaccines (1 of 3 - 19+ 3-dose series) 1985 Influenza Vaccine (#1) 2025 HIB Vaccines Aged Out No longer eligi ble based on patient's age to complete this topic HPV Vaccines (No Doses Required) Completed Hepatitis A Vaccines Aged Out No long er eligible based on patient's age to complete this topic IPV Vaccines Aged Out No longer eligi ble based on patient's age to complete this topic Meningococcal B Vaccine Aged Out No l onger eligible based on patient's age to complete this topic Meningococcal Vaccine Aged Out No benny fareed eligible based on patient's age to complete this topic Rotavirus Vaccines Aged Out No longer eligible based on patient's age to complete this topic [place] Care Teams Yard Crane Operator Relationship Specialty Start Date End Date Genesis Gray [address] [place] [id number] PCP - Insurance Identified PCP 08/08/25
== END 2025-09-26 08:52 | disposition home or self-care (01) ==
LOC: HO.HCS 08:22
PROVIDERS: PCP Internal Medicine; Visit Provider Internal Medicine Cardiovascular Disease
DX: I25.10 Atherosclerotic heart disease of native coronary artery without angina pectoris (principal)
CPT/HCPCS: 99214

== ENCOUNTER → 2025-09-26 08:22 | Outpatient (BNVA) | payer MEDICAID, SELFPAY | PROVIDERS: PCP Internal Medicine; Visit Provider Internal Medicine Cardiovascular Disease | DX: I25.10 Atherosclerotic heart disease of native coronary artery without angina pectoris (principal) | CPT/HCPCS: 99212 ==